=== PATIENT | female | born 1950 | race Caucasian/White ===

== ENCOUNTER 2017-03-30 06:02 | Outpatient (CLI) | payer OTHER ==
[2017-03-30 06:15] LABS: BASOPHILS % (AUTO) 0.4 %; EOSINOPHILS # (AUTO) 0.2 10^3/uL (0.0-0.7); EOSINOPHILS % (AUTO) 2.7 %; HGB - HEMOGLOBIN 13.1 g/dL (12.0-16.0); LYMPHOCYTES # (AUTO) 1.6 10^3/uL (1.5-3.5); LYMPHOCYTES % (AUTO) 28.4 %; MEAN CORPUSCULAR HGB CONC 31.4 g/dL (32.0-36.0); MEAN CORPUSCULAR VOLUME 82.9 fL (81.0-99.0); MEAN PLATELET VOLUME 7.8 fL (7.9-10.8); MONOCYTES # (AUTO) 0.4 10^3/uL (0.0-1.0); MONOCYTES % (AUTO) 7.5 %; NEUTROPHILS # (AUTO) 3.4 10^3/uL (1.5-6.6); PLT - PLATELET COUNT 279 10^3/uL (130-450); RED BLOOD COUNT 5.04 10^6/uL (4.20-5.40); WHITE BLOOD COUNT 5.6 x10^3/uL (4.8-10.8)
[2017-03-30 06:30] LABS: ALBUMIN 4.3 g/dL (3.2-5.5); ALBUMIN/GLOBULIN RATIO 1.5 (1.0-2.2); ALKALINE PHOSPHATASE 70 IU/L (42-121); ALT ALANINE AMINOTRANSFERASE 17 IU/L (10-60); AST ASPARTATE AMINOTRANSFERASE 19 IU/L (10-42); BILIRUBIN,TOTAL 0.3 mg/dL (0.2-1.0); BUN - BLOOD UREA NITROGEN 24 mg/dL (6-20); CALCIUM 9.1 mg/dL (8.5-10.3); CARBON DIOXIDE - CO2 26 mmol/L (21-32); CHLORIDE 108 mmol/L (101-111); CHOL/HDL RATIO 4.8 (<4.4); CHOLESTEROL 209 mg/dL; CREATININE 0.7 mg/dL (0.4-1.0); GFR - MDRD 84 (>89); GLUCOSE 108 mg/dL (70-100); HDL CHOLESTEROL 44 mg/dL; LDL CHOLESTEROL,CALCULATED 144 mg/dL; LDL/HDL RATIO 3.3 (<4.4); SODIUM 139 mmol/L (135-145); TOTAL PROTEIN 7.1 g/dL (6.7-8.2); VLDL CHOLESTEROL 21 mg/dL
== END 2017-03-30 06:03 | disposition home or self-care (01) ==
LOC: LAB 06:02
PROVIDERS: ATTEND Physician Assistant Medical
DX: Z00.00 Encounter for general adult medical examination without abnormal findings (principal)
CPT/HCPCS: 36415; 80053; 80061; 84443; 85025

== ENCOUNTER 2017-04-01 10:30 | Outpatient (CLI) | payer OTHER ==
--- NOTE | 2017-04-01 17:58 | XRAY Report ---
DATE OF SERVICE: 04/01/2017 THREE VIEW LUMBAR SPINE: 04/01/2017 CLINICAL INDICATION: Degenerative disk disease. AP, lateral, coned-down views of the lumbar spine are compared to previous MRI of 02/16/2014. Moderate degenerative disk and facet disease is again seen. There is no evidence of interval fracture or subluxation. The bowel gas pattern is unremarkable. IMPRESSION: Moderate degenerative changes. No evidence of interval fracture. TD: 04/01/2017 18:56
== END 2017-04-01 10:31 | disposition home or self-care (01) ==
LOC: DI 10:30
PROVIDERS: ATTEND Physician Assistant Medical
DX: M51.36 Other intervertebral disc degeneration, lumbar region (principal); M47.896 Other spondylosis, lumbar region
CPT/HCPCS: 72100

== ENCOUNTER 2017-04-14 14:25 | Outpatient (CLI) | payer OTHER ==
--- NOTE | 2017-04-15 17:52 | MRI Report ---
EXAM: MRI LUMBAR SPINE WITHOUT CONTRAST EXAM DATE: 04/14/2017 03:23 PM. CLINICAL HISTORY: Degenerative disk disease, lumbar spine. COMPARISON: MRI of the lumbar spine 02/16/2014. TECHNIQUE: Multiplanar, multisequence T1-weighted and fluid-sensitive sequences of the lumbar spine f rom T12 to S1 without contrast. Other: None. FINDINGS: There is straightening of the normal lumbar lordosis. There are Schmorl's nodes within the endplates from T11-T12 through L5-S1. There is a 3 mm retrolisthesis of L5 on S1. There is a moderate decrease in the height of the disk at T12-L1, L1-L2, L2-L3, L3-L4, L4-L5 and L5-S 1. There are a mixture of Modic type I and type II endplate degenerative change within the T12-L1 throug h L5-S1 endplates. The conus terminates at the inferior endplate level of L1. There is no significant atrophy of the paraspinal musculature or the psoas musculature. The abdominal aorta is of normal caliber. There is a T2 hyperintense lesion which appears to extend exophytically from the right lobe of the li renee measuring 3.7 x 3.1 cm. This likely represents a simple hepatic cyst. The kidneys are without guillaume dence of hydronephrosis. T12-L1: There is a small disk osteophyte complex eccentric to the right with superimposed right parac entral extrusion of the disk. There appears to be mild flattening of the right hemicord. Recommend co rrelation for any right T12 radicular symptoms. There is no significant foraminal stenosis. The facet s are normal. There is no significant change at this level. L1-L2: There is a small disk osteophyte complex abutting the sac producing a mild central canal steno sis. The facets are normal. There is mild neural foraminal narrowing bilaterally. There is no signifi cant change at this level. L2-L3: There is a small disk osteophyte complex abutting the sac producing a mild central canal steno sis. The facets are normal. There is mild to moderate neural foraminal narrowing bilaterally. There i s no significant change at this level. L3-L4: There is a small disk osteophyte complex abutting the sac producing a mild central canal steno sis. There is minimal left and mild to moderate right facet arthropathy. There is mild to moderate le ft and right foraminal stenosis. There is no significant change at this level. L4-L5: There is a broad-based disk osteophyte complex abutting the sac producing a mild central canal stenosis. There is mild ligamentum flavum hypertrophy. There is mild left and [id number] right facet arthropathy. There is [id number] left and moderate right foraminal stenosis. There is no significant change at this level. L5-S1: There is a broad-based disk osteophyte complex abutting the sac without significant central ca nal stenosis. There is abutment of the traversing S1 nerve roots without significant displacement. Th ere is minimal bilateral facet arthropathy. There is mild to moderate neural foraminal narrowing bila terally. There is no significant change at this level. IMPRESSION: 1. There is an unchanged small disk osteophyte complex with a superimposed right paracentral extrusio n of the disk producing mild flattening of the right hemicord. Recommend correlation for any right T1 2 radicular symptoms. 2. There are unchanged mild central canal stenoses at L1-L2, L2-L3, and L3-L4 from small disk osteoph yte complexes. 3. There is an unchanged mild central canal stenosis at L4-L5 from broad-based disk osteophyte comple x. Comment: The following findings are so common in adults without low back pain that while we report th eir presence, they must be interpreted with caution and in the context of the clinical situation. (Re donaldo Roberson et al, Spine 2001) Prevalence of findings in patients without low back pain: Disk degeneration (any evidence): 92% Disk desiccation/T2 signal loss: 83% Disk height loss: 56% Disk bulge: 64% Disk protrusion: 32% Annular tear/high intensity zone: 38% [facility] Referring Provider Line: [phone] SITE ID: [id number]
== END 2017-04-14 14:26 | disposition home or self-care (01) ==
LOC: DI 14:25
PROVIDERS: ATTEND Physician Assistant Medical
DX: M51.36 Other intervertebral disc degeneration, lumbar region (principal); M51.25 Other intervertebral disc displacement, thoracolumbar region; M43.17 Spondylolisthesis, lumbosacral region; M47.896 Other spondylosis, lumbar region; M47.897 Other spondylosis, lumbosacral region
CPT/HCPCS: 72148

== ENCOUNTER 2017-05-11 19:52 | Emergency (ER) | payer OTHER ==
[2017-05-11 19:57] VITALS: BP 139/64
[2017-05-11] MEDS ORDERED: BENZONATATE 100 MG CAPSULE PO STA (20:27)
[2017-05-11] MEDS ORDERED: DEXAMETHASONE 10 MG/ML VIAL PO STA (20:27)
--- NOTE | 2017-05-11 20:55 | ED Physician Documentation ---
PD HPI URI - Stated complaint Stated Complaint: SORE THROAT - Chief complaint Chief Complaint: Resp - History obtained from History obtained from: Patient - History of Present Illness Timing - onset: How many days ago (10) Timing details: Gradual onset, Still present Associated symptoms: Fever, Chills, Nasal congestion, Rhinorrhea, Sore throat, Dry cough Contributing factors: Sick contact Similar symptoms before: No diagnosis Recently seen: Not recently seen - Additional information Additional information: Patient is a 66 year old female with no significant past medical history who is presenting to the emergency department for fevers, sore throat, cough and sinus pressure. patient states that for the last 10 days she has had uri symptoms and her family members had similar symptoms. patient states that the other family members got better but her symptoms persisted. Review of Systems Constitutional: reports: Fever, Chills Eyes: reports: Reviewed and negative Ears: denies: Ear pain, Drainage/discharge Nose: reports: Rhinorrhea / runny nose, Congestion, Sinus pressure / pain Throat: reports: Sore throat Cardiac: denies: Chest pain / pressure Respiratory: reports: Cough. denies: Wheezing GI: denies: Nausea, Vomiting : reports: Reviewed and negative Skin: reports: Reviewed and negative Musculoskeletal: denies: Neck pain, Back pain Neurologic: denies: Generalized weakness, Focal weakness, Headache Psychiatric: denies: Depressed Immunocompromised: denies: Immunocompromised PD PAST MEDICAL HISTORY - Past Medical History Past Medical History: Yes Endocrine/Autoimmune: HyPOthyroidism Musculoskeletal: Osteoarthritis - Past Surgical History Past Surgical History: Yes - Present Medications Home Medications: Ambulatory Orders Medication Instructions Recorded Confirmed Amox/Clav 875/125 [Augmentin] 1 each PO Q12H #14 tablet 05/11/17 Benzonatate [Tessalon Perle] 100 mg PO TID #14 capsule 05/11/17 Codeine Phosphate/Guaifenesin 5 ml PO DAILY #100 ml 05/11/17 [Guaifen-Codeine 100-10 mg/5 ml] Levothyroxine Sodium [Synthroid] 112 mcg PO DAILY 05/11/17 05/11/17 - Allergies Allergies/Adverse Reactions: Allergies Allergy/AdvReac Type Severity Reaction Status Date / Time No Known Drug Allergies Allergy Verified 05/11/17 19:57 - Social History Does the pt smoke?: No Smoking Status: Never smoker Does the pt drink ETOH?: No Does the pt have substance abuse?: No - Immunizations Immunizations are current?: Yes - POLST Patient has POLST: No PD ED PE NORMAL - Vitals Vital signs reviewed: Yes - General General: Alert and oriented X 3, No acute distress, Well developed/nourished - HEENT HEENT: Atraumatic, PERRL, Moist mucous membranes - Cardiac Cardiac: RRR, No murmur - Respiratory Respiratory: No respiratory distress - Abdomen Abdomen: Soft, Non tender, Non distended - Derm Derm: Normal color, Warm and dry, No rash - Extremities Extremities: No deformity, No edema - Neuro Neuro: Alert and oriented X 3, No motor deficit, Normal speech - Psych Psych: Normal mood PD ED PE EXPANDED - HEENT HEENT: Right frontal sinus TTP, Left frontal sinus TTP, Nasal congestion, Pharyngeal erythema. No: Tonsillar exudate, Soft palate petecchiae Results - Vitals Vitals: Vital Signs - 24 hr 05/11/17 19:54 Temperature 36.4 C L Heart Rate 75 Respiratory 18 Rate Blood Pressure 139/64 H O2 Saturation 98 Oxygen O2 Source Room air - Labs Labs: Laboratory Tests 05/11/17 20:08 Group A Strep Rapid Negative - Rads (name of study) chest x-ray Radiology: Final report received (hiatal hernia, no pulmonary abnormality) PD MEDICAL DECISION MAKING - ED course Complexity details: reviewed old records, reviewed results, re-evaluated patient , considered differential, d/w patient, d/w family ED course: Patient was seen and examined at bedside. Patient was treated with decadron, tessalon and sent for imaging. When patient returned from imaging and results were reviewed. Patient had no sign of pneumonia. Patient was treated with augmentin and was stable for discharge with outpatient follow up. Departure - Departure Disposition: 01 Home, Self Care Clinical Impression: Sinusitis Condition: Good Instructions: ED Sinusitis Abx Tx Follow-Up: Judith Maldonado PA-C [Primary Care Provider] - Within 3 Days Prescriptions: Amox/Clav 875/125 [Augmentin] 1 each PO Q12H #14 tablet Benzonatate [Tessalon Perle] 100 mg PO TID #14 capsule Codeine Phosphate/Guaifenesin [Guaifen-Codeine 100-10 mg/5 ml] 5 ml PO DAILY # 100 ml Comments: Your chest x-ray today showed no pneumonia, only your hiatal hernia. You are being started on an antibiotics for sinusitis. You will be on the antibiotics for the next week. You should follow up with your doctor if your symptoms don' t improve. You may return to the emergency department at any time for new, worsening or uncontrollable symptoms.
--- NOTE | 2017-05-11 21:10 | XRAY Preliminary Report ---
Exam: XR CHEST 2 VIEW X-RAY IMPRESSION: Moderate hiatal hernia, mildly increased. No acute pulmonary findings seen. [facility] SITE ID: [id number]
--- NOTE | 2017-05-11 21:11 | XRAY Report ---
EXAM: CHEST RADIOGRAPHY EXAM DATE: 05/11/2017 08:52 PM. CLINICAL HISTORY: Fever, cough. COMPARISON: Chest 03/18/2016. TECHNIQUE: 2 views. FINDINGS: Lungs/Pleura: No focal opacities evident. No pleural effusion. No pneumothorax. Normal volumes. Mediastinum: Normal heart size. Moderate hiatal hernia, mildly increased. IMPRESSION: Moderate hiatal hernia, mildly increased. No acute pulmonary findings seen. [facility] Referring Provider Line: [phone] SITE ID: [id number]
[2017-05-11] MEDS ORDERED: IBUPROFEN 600 MG TABLET PO STA (21:13)
[2017-05-11] MEDS ORDERED: AMOX/CLAV 875 MG/125 MG TABLET PO STA (21:13)
== END 2017-05-11 21:18 | disposition home or self-care (01) ==
LOC: ED 19:52
DX: J32.9 Chronic sinusitis, unspecified (principal); E03.9 Hypothyroidism, unspecified
CPT/HCPCS: 71046; 87070; 87430; 99283; A9270

== ENCOUNTER 2017-05-26 09:10 | Emergency (ER) | payer OTHER ==
[2017-05-26 10:33] VITALS: BP 138/67
--- NOTE | 2017-05-26 10:33 | ED Physician Documentation ---
PD HPI DYSPNEA - Stated complaint Stated Complaint: SOA - Chief complaint Chief Complaint: Resp - History obtained from History obtained from: Patient, Family - History of Present Illness Timing - onset: Today Timing - onset during: Rest Timing - duration: Minutes Timing - details: Abrupt onset, Now resolved Inciting event(s): Allergic rxn/anaphylaxis, Exposure (ie smoke) Improved by: Inhaler/neb Worsened by: Coughing, Allergens Associated symptoms: Wheezing. No: Fever, Cough, Hemoptysis, Chest pain / discomfort, Palpitations, Diaphoresis, Bilateral edema, Unilateral edema Similar symptoms before: Diagnosis (bronchospasm related to irritant inahalents) Recently seen: Clinic - Additional information Additional information: 66-year-old female with a history of inhalant irritant bronchospasm has developed a episode of acute bronco-spasm related to smoke and perfume on a coworker. The patient developed acute shortness of breath and coughed hard enough that she became dyspneic and was brought to the emergency department for evaluation. She has since had resolution of her symptoms and states that these are typical for her for exposure to irritants that she is sensitive to and she would normally just take some Benadryl and symptoms would resolve. She is taking the Benadryl symptoms are better and she would prefer to go home. She has recently been treated for a sinus infection and believes those symptoms are completely resolved she finished taking her antibiotic about a week ago. She has not been using her inhaler recently but does use her inhaler occasionally when she develops bronchospasm related to irritants. Review of Systems Constitutional: denies: Fever Eyes: denies: Decreased vision Ears: denies: Ear pain Nose: denies: Rhinorrhea / runny nose, Congestion Throat: denies: Sore throat Cardiac: denies: Chest pain / pressure, Palpitations Respiratory: reports: Dyspnea, Cough, Wheezing GI: denies: Abdominal Pain, Nausea, Vomiting : denies: Dysuria, Frequency PD PAST MEDICAL HISTORY - Past Medical History Past Medical History: Yes Endocrine/Autoimmune: HyPOthyroidism Musculoskeletal: Osteoarthritis - Past Surgical History Past Surgical History: Yes - Present Medications Home Medications: Ambulatory Orders Medication Instructions Recorded Confirmed Amox/Clav 875/125 [Augmentin] 1 each PO Q12H #14 tablet 05/11/17 Benzonatate [Tessalon Perle] 100 mg PO TID #14 capsule 05/11/17 Codeine Phosphate/Guaifenesin 5 ml PO DAILY #100 ml 05/11/17 [Guaifen-Codeine 100-10 mg/5 ml] Levothyroxine Sodium [Synthroid] 112 mcg PO DAILY 05/11/17 05/11/17 - Allergies Allergies/Adverse Reactions: Allergies Allergy/AdvReac Type Severity Reaction Status Date / Time No Known Drug Allergies Allergy Verified 05/11/17 19:57 - Social History Does the pt smoke?: No Smoking Status: Never smoker Does the pt drink ETOH?: No Does the pt have substance abuse?: No - Immunizations Immunizations are current?: Yes - POLST Patient has POLST: No PD ED PE NORMAL - Vitals Vital signs reviewed: Yes (hypertensive) - General General: Alert and oriented X 3, No acute distress, Well developed/nourished - HEENT HEENT: Atraumatic, PERRL, EOMI, Ears normal, Moist mucous membranes, Pharynx benign, Dentition benign - Neck Neck: Supple, no meningeal sign, No bony TTP - Cardiac Cardiac: RRR, No murmur - Respiratory Respiratory: No respiratory distress, Clear bilaterally - Abdomen Abdomen: Soft, Non tender - Back Back: No CVA TTP, No spinal TTP - Derm Derm: Normal color, Warm and dry, No rash - Extremities Extremities: No deformity, No edema - Neuro Neuro: Alert and oriented X 3, No motor deficit, No sensory deficit, Normal speech Eye Opening: Spontaneous Motor: Obeys Commands Verbal: Oriented GCS Score: 15 - Psych Psych: Normal mood, Normal affect Results - Vitals Vitals: Vital Signs - 24 hr 05/26/17 05/26/17 09:20 10:18 Heart Rate 81 64 Respiratory 20 23 Rate Blood Pressure 162/87 H 138/67 H O2 Saturation 99 100 Oxygen O2 Source Room air - EKG (time done) 0953 Rate: Rate (enter#) (68) Other comments: Other comments (early transition) Computer interpretation: Agree with computer PD MEDICAL DECISION MAKING - ED course Complexity details: reviewed results, re-evaluated patient, considered differential, d/w patient, d/w family ED course: 66-year-old female with an acute irritant bronchospastic episode has resolution in her symptoms. No further treatment is indicated in the emergency department no further workup is indicated the patient would like to go home. Departure - Departure Disposition: Home, Self Care Clinical Impression: Bronchospastic airway disease Condition: Stable Instructions: Asthma Control Triggers Irritants Follow-Up: Judith Maldonado PA-C [Primary Care Provider] - Forms: Activity restrictions Discharge Date/Time: 05/26/17 10:44
== END 2017-05-26 10:44 | disposition home or self-care (01) ==
LOC: ED 09:10
DX: T65.891A Toxic effect of other specified substances, accidental (unintentional), initial encounter (principal); J68.0 Bronchitis and pneumonitis due to chemicals, gases, fumes and vapors; E03.9 Hypothyroidism, unspecified
CPT/HCPCS: 93005; 99283

== ENCOUNTER 2017-09-07 12:29 | Outpatient (CLI) | END 2017-09-07 12:30 | disposition home or self-care (01) ==

== ENCOUNTER 2017-09-29 14:27 | Outpatient (CLI) | payer OTHER ==
[2017-09-29 15:35] LABS: CALCIUM 9.3 mg/dL (8.5-10.3); CREATININE 0.7 mg/dL (0.4-1.0)
== END 2017-09-29 14:28 | disposition home or self-care (01) ==
LOC: LAB 14:27
PROVIDERS: ATTEND Physician Assistant Medical
DX: R25.2 Cramp and spasm (principal)
CPT/HCPCS: 36415; 80048

== ENCOUNTER 2017-12-09 13:04 | Outpatient (CLI) | payer OTHER ==
--- NOTE | 2017-12-09 14:22 | Ultrasound Report ---
Reason: HISTORY OF DEEP VENOUS THROMBOSIS Procedure Date: 12/09/2017 Accession Number: [id number] / [id number] Procedure: US - Duplex Ext Veins Right CPT Code: FULL RESULT: EXAM: RIGHT LOWER EXTREMITY VENOUS ULTRASOUND EXAM DATE: 12/09/2017 01:18 PM. CLINICAL HISTORY: History of deep venous thrombosis. COMPARISON: DUPLEX EXT VEINS RIGHT 11/13/2015 3:03 PM. TECHNIQUE: Real-time sonographic vascular imaging was performed by the installation supervisor through the lower extremity utilizing both color-flow and Doppler spectral analysis. Multiple contact representative static images were saved for review. FINDINGS: Common Femoral Vein (CFV): Normal. CFV-GSV Junction: Normal. Profunda Femoral Vein (PFV): Normal. Femoral Vein (FV) Prox: Normal. Femoral Vein (FV) Mid: Normal. Femoral Vein (FV) Dist: Normal. Popliteal Vein: Normal. Posterior Tibial Veins: Normal. Peroneal Veins: Normal. Contralateral Side CFV: Normal. Other: None. IMPRESSION: No evidence for deep venous thrombosis. [facility]
== END 2017-12-09 13:05 | disposition home or self-care (01) ==
LOC: DI 13:04
PROVIDERS: ATTEND Family Medicine
DX: M79.661 Pain in right lower leg (principal); Z86.718 Personal history of other venous thrombosis and embolism

== ENCOUNTER 2018-01-19 15:06 | Outpatient (CLI) | payer OTHER ==
--- NOTE | 2018-01-20 10:50 | MRI Report ---
Reason: OSTEOARTHRITIS,KNEE RIGHT Procedure Date: 01/19/2018 Accession Number: [id number] / [id number] Procedure: MRI - Knee RT W/O CPT Code: FULL RESULT: EXAM: RIGHT KNEE MRI WITHOUT CONTRAST EXAM DATE: 01/19/2018 04:48 PM. CLINICAL HISTORY: Right knee pain since 2009. History of meniscus repair. COMPARISON: KNEE RIGHT W/O 04/15/2015 3:18 PM. TECHNIQUE: Multiplanar, multisequence T1-weighted and fluid-sensitive sequences of the knee without contrast. Other: None. FINDINGS: Bones: There is subcortical fluid in the intercondylar region of the tibia. There is tricompartmental osteophyte formation. Articular Cartilage: There is mild thinning of the patellofemoral cartilage, and moderate lateral compartment cartilage erosion. There is mild medial compartment cartilage erosion. Medial Meniscus: The medial meniscus is intact. Lateral Meniscus: There is degenerative change of the anterior horn. There is a horizontal tear of the posterior horn. The body is extruded. There is fraying of the free margin. Cruciate Ligaments: The anterior and posterior cruciate ligaments are intact. Collateral Ligaments: The medial collateral and lateral collateral ligamentous structures are intact. Tendons: The patella and quadriceps tendons appear slightly thickened, raising the possibility of prior tendinosis or low-grade tears. Musculature: No edema or fatty atrophy. Other: There is a small joint effusion. No popliteal cyst. No loose bodies. The medial and lateral retinacula are intact. The subcutaneous tissues and fat pads are unremarkable. IMPRESSION: 1. Moderate to severe lateral compartment osteoarthritis. Mild medial and patellofemoral compartment osteoarthritis. 2. Degenerative tearing and extrusion of the lateral meniscus. Degenerative tearing of the lateral meniscus and hyaline cartilage erosion in the lateral compartment appear to have worsened since the prior MRI in 2015. 3. Small joint effusion. 4. Possible prior tendinosis or low-grade partial thickness tear of the patella and quadriceps tendons. 5. No significant change in the medial and patellofemoral compartments compared with the prior study from 2016. [facility] MUSCULOSKELETAL RADIOLOGY SECTION
== END 2018-01-19 15:07 | disposition home or self-care (01) ==
LOC: DI 15:06
PROVIDERS: ATTEND Physician Assistant Medical
DX: M17.11 Unilateral primary osteoarthritis, right knee (principal); S83.281A Other tear of lateral meniscus, current injury, right knee, initial encounter; M25.461 Effusion, right knee

== ENCOUNTER 2018-01-31 08:48 | Outpatient (CLI) | payer OTHER ==
--- NOTE | 2018-02-04 08:27 | Nuclear Medicine Report ---
Reason: CHEST PAIN Procedure Date: 01/31/2018 Accession Number: [id number] / [id number] Procedure: NM - Myocardial Perfusion STR/RST CPT Code: FULL RESULT: EXAM: Myocardial Perfusion STR/RST DATE: 01/31/2018 9:30 AM CLINICAL HISTORY: CHEST PAIN COMPARISON: None. TECHNIQUE: The patient was injected intravenously with a dose of 10.6 mCi technetium 99 based radiotracer in anticipation of a nuclear medicine myocardial stress perfusion study. The stress portion and imaging portion of the examination were then subsequently not completed due to unanticipated absence of the physician directing the stress laboratory. FINDINGS: None. IMPRESSION: Study not performed. [facility]
== END 2018-01-31 08:49 | disposition home or self-care (01) ==
LOC: DI 08:48
PROVIDERS: ATTEND Physician Assistant Medical
DX: Z53.8 Procedure and treatment not carried out for other reasons (principal)
CPT/HCPCS: 78452; 93017; A9500

== ENCOUNTER 2018-02-25 08:55 | Outpatient (CLI) | payer OTHER ==
[2018-02-25] MEDS ORDERED: AMINOPHYLLINE 250 MG/10 ML VIAL IV ONE (08:56)
[2018-02-25] MEDS ORDERED: REGADENOSON 0.4 MG/5 ML SYRINGE IVP ONE ×2 (10:46→15:47)
--- NOTE | 2018-02-25 12:14 | CARDIAC PROCEDURE NOTE ---
DATE OF SERVICE: 02/25/2018 Physician: Lashonda Cobb MD, [facility] INDICATION: Chest pain with exertion. CARDIAC RISK FACTORS 1. Hyperlipidemia. 2. Family history of heart disease. 3. Postmenopausal status. 4. Frequent Diclofenac use. SUMMARY: After signing informed consent, the patient underwent a Lexiscan stress test with nuclear myocardial perfusion imaging using Sestamibi. Resting heart rate: 59. Peak heart rate: 105. Resting blood pressure: 168/80. Peak blood pressure: 162/82. Lexiscan was infused per protocol. The patient developed flushing, shortness of breath, a dry cough, nausea, and her typical chest pain which was rated a 2/10. Aminophylline 50 mg IV was given for reversal and her symptoms resolved within 4 minutes. At the end of recovery, when assuming an upright sitting position, the patient again developed her shortness of breath, dry cough, and chest pain now rated a 4/10. There was no wheezing on exam, and oxygen saturation was 99% on room air at this point. Aminophylline 50 mg IV was again administered and she had resolution of symptoms in 2 minutes. She exited the stress lab with no symptoms, heart rate 71, blood pressure 150/83. RESTING EKG: Normal sinus rhythm, first-degree AV block, left atrial enlargement, early R/S transition. EKG AT [facility]: New T-wave inversion in lead III and rare PVCs. EKG with the second episode of chest pain: Continued T-wave inversion in lead III. This resolved after the second dose of Aminophylline was administered (she required a total dose of 100 mg of Aminophylline). IMPRESSION: 1. Borderline significant ischemic changes by EKG criteria on this pharmaceutical stress test. 2. Shortness of breath and a dry cough developed after both exposures to Sestamibi IV dosing. 3. Nuclear images reported separately. cc: Judith Maldonado PA-C TD: 02/25/2018 11:56 MTDD
--- NOTE | 2018-02-25 16:30 | Nuclear Medicine Report ---
Reason: CHEST PAIN Procedure Date: 02/25/2018 Accession Number: [id number] / [id number] Procedure: NM - Myocardial Perfusion STR/RST CPT Code: FULL RESULT: EXAM: SINGLE-ISOTOPE PHARMACOLOGICAL STRESS TEST WITH REGADENOSON. SINGLE-ISOTOPE AND ONE-DAY REST/STRESS MYOCARDIAL PERFUSION SCANS WITH TOMOGRAPHIC IMAGING, QUANTITATIVE ANALYSIS, WALL MOTION ANALYSIS AND CALCULATION OF EJECTION FRACTION. EXAM DATE: 02/25/2018 03:50 PM. CLINICAL HISTORY: CHEST PAIN. COMPARISON: None available. TECHNIQUE: After the intravenous administration of 9.9 mCi of Tc-99m sestamibi, a rest myocardial perfusion scan was done with tomography. Motion correction was applied when appropriate. After an appropriate delay, pharmacological stress was performed with the infusion of 0.4 mg regadenoson per protocol. According to protocol, 41.7 mCi of Tc-99m sestamibi was injected for stress myocardial perfusion scan. Motion correction was applied when appropriate. Gated tomographic images were obtained for wall motion analysis and computation of left ventricular ejection fraction. FINDINGS: There is a small, mild defect involving the anterior apex and distal anteroseptal wall, slightly greater involvement of the distal anterior wall on the stress images compared to the rest images. Computer analysis: Summed stress score 3 Summed rest score 2 Summed difference score 1 Wall motion analysis demonstrates no focal wall motion abnormality. The left ventricular end-diastolic volume is 50 cc. The left ventricular end-systolic volume is 14 cc. The left ventricular ejection fraction is calculated to be 72%. IMPRESSION: 1. Small, mild defect in the anterior apex and distal anteroseptal wall, with minimal reversibility in the distal anterior wall. 2. Left ventricular ejection fraction of 72%. 3. Normal segmental and global wall motion. 4. Normal left ventricular cavity size, no change with stress. 5. Based on computer analysis, normal study with no ischemia. [facility]
== END 2018-02-25 08:56 | disposition home or self-care (01) ==
LOC: DI 08:55
PROVIDERS: ATTEND Physician Assistant Medical
DX: R07.9 Chest pain, unspecified (principal); E78.5 Hyperlipidemia, unspecified; Z82.49 Family history of ischemic heart disease and other diseases of the circulatory system; Z79.1 Long term (current) use of non-steroidal anti-inflammatories (NSAID)
CPT/HCPCS: 78452; 93017; A9500; J2785

== ENCOUNTER 2018-04-13 10:50 | Outpatient (CLI) | payer BC ==
--- NOTE | 2018-04-13 14:38 | XRAY Report ---
Reason: PAIN IN UNSPECIFIED JOINT,LOW BACK PAIN Procedure Date: 04/13/2018 Accession Number: [id number] / [id number] Procedure: XR - Hand 3 View BILAT CPT Code: FULL RESULT: EXAMS: 1. RIGHT HAND RADIOGRAPHY 2. LEFT HAND RADIOGRAPHY EXAM DATE: 04/13/2018 11:06 AM. CLINICAL HISTORY: Pain in unspecified joint, low back pain. COMPARISON: None. TECHNIQUE: 2 views each hand. FINDINGS: Right: Bones: Normal. No fractures or bone lesions. Joints: Mild joint space narrowing of the distal interphalangeal joints, most pronounced in the second ray. No subluxations. Soft Tissues: Normal. No soft tissue swelling. Left: Bones: Normal. No fractures or bone lesions. Joints: Mild degenerative changes of the first carpometacarpal joint and mild joint space narrowing of the distal interphalangeal joints. No subluxations. Soft Tissues: Normal. No soft tissue swelling. IMPRESSION: Mild degenerative changes, osteoarthrosis pattern. [facility]
--- NOTE | 2018-04-13 14:45 | XRAY Report ---
Reason: PAIN IN UNSPECIFIED JOINT,LOW BACK PAIN Procedure Date: 04/13/2018 Accession Number: [id number] / [id number] Procedure: XR - Pelvis 1 View CPT Code: FULL RESULT: EXAM: PELVIS RADIOGRAPHY EXAM DATE: 04/13/2018 11:41 AM. CLINICAL HISTORY: Pain in unspecified joint, low back pain. COMPARISON: None. TECHNIQUE: 1 view. FINDINGS: Bones: Normal. No fracture or bone lesion. Joints: The visualized hip, pubis symphysis, and sacroiliac joints are preserved. No subluxation. Soft Tissues: Normal. No soft tissue swelling. IMPRESSION: Normal pelvis radiography. RADIA
--- NOTE | 2018-04-13 14:45 | XRAY Report ---
Reason: PAIN IN UNSPECIFIED JOINT,LOW BACK PAIN Procedure Date: 04/13/2018 Accession Number: [id number] / [id number] Procedure: XR - Lumbar Spine 2 View CPT Code: FULL RESULT: EXAM: LUMBOSACRAL SPINE RADIOGRAPHY EXAM DATE: 04/13/2018 11:06 AM. CLINICAL HISTORY: Pain in unspecified joint, low back pain. COMPARISONS: Lumbar spine 2 view 04/01/2017 10:32 AM. TECHNIQUE: 3 views. FINDINGS: Alignment: Mild dextroconvex degenerative lumbar scoliosis centered about L2-L3. No significant listhesis. Bones: Five [id number] lumbar vertebral bodies are present. No fractures or bone lesions. Disks: Mild multilevel degenerative disk disease with disk osteophyte complex formation mostly at L2-L3 and L1-L2. Facets: Multilevel facet arthropathy, mild throughout most of the lumbar spine and moderate at L5. Sacroiliac Joints: Unremarkable. Soft Tissues: Normal. The visualized bowel gas pattern is normal. IMPRESSION: Degenerative changes as described. RADIA
== END 2018-04-13 10:51 | disposition home or self-care (01) ==
LOC: DI 10:50
PROVIDERS: ATTEND Internal Medicine Rheumatology
DX: M18.0 Bilateral primary osteoarthritis of first carpometacarpal joints (principal); M19.042 Primary osteoarthritis, left hand; M19.041 Primary osteoarthritis, right hand; M51.36 Other intervertebral disc degeneration, lumbar region; M47.9 Spondylosis, unspecified
CPT/HCPCS: 72100; 72170

== ENCOUNTER 2018-04-14 06:23 | Outpatient (CLI) | payer BC ==
[2018-04-14 09:15] LABS: RHEUMATOID FACTOR NEGATIVE (Negative)
== END 2018-04-14 06:24 | disposition home or self-care (01) ==
LOC: LAB 06:23
PROVIDERS: ATTEND Internal Medicine Rheumatology
DX: M25.50 Pain in unspecified joint (principal)
CPT/HCPCS: 36415; 85651; 86038; 86140; 86200; 86430

== ENCOUNTER 2018-05-25 06:30 | Outpatient (CLI) | payer BC, MEDICARE ==
[2018-05-25 07:08] LABS: CALCIUM 9.1 mg/dL (8.5-10.3); CREATININE 0.7 mg/dL (0.4-1.0)
== END 2018-05-25 06:31 | disposition home or self-care (01) ==
LOC: LAB 06:30
PROVIDERS: ATTEND Internal Medicine Cardiovascular Disease
DX: I10 Essential (primary) hypertension (principal)
CPT/HCPCS: 36415; 80048

== ENCOUNTER 2018-06-07 08:24 | Outpatient (CLI) | payer BC ==
[2018-06-07 09:01] LABS: CHOL/HDL RATIO 3.8 (<4.4); CHOLESTEROL 156 mg/dL; HDL CHOLESTEROL 41 mg/dL; LDL CHOLESTEROL,CALCULATED 87 mg/dL; LDL/HDL RATIO 2.1 (<4.4); VLDL CHOLESTEROL 28 mg/dL
== END 2018-06-07 08:25 | disposition home or self-care (01) ==
LOC: LAB 08:24
PROVIDERS: ATTEND Internal Medicine Cardiovascular Disease
DX: E78.5 Hyperlipidemia, unspecified (principal)
CPT/HCPCS: 36415; 80061; 83721

== ENCOUNTER 2018-07-06 08:00 | Outpatient (CLI) | payer BC | END 2018-07-06 23:59 | disposition home or self-care (01) | LOC: LAB.R 08:00 | PROVIDERS: ATTEND Orthopaedic Surgery Sports Medicine | DX: Z01.812 Encounter for preprocedural laboratory examination (principal); M25.561 Pain in right knee; M17.11 Unilateral primary osteoarthritis, right knee | CPT/HCPCS: 87640 ==

== ENCOUNTER 2018-07-07 06:57 | Outpatient (CLI) | payer BC ==
[2018-07-07 07:37] LABS: ALBUMIN/GLOBULIN RATIO 1.3 (1.0-2.2); BILIRUBIN,TOTAL 0.6 mg/dL (0.2-1.0); CALCIUM 8.8 mg/dL (8.5-10.3); CREATININE 0.7 mg/dL (0.4-1.0)
[2018-07-07 07:43] LABS: BASOPHILS % (AUTO) 0.7 %; EOSINOPHILS # (AUTO) 0.1 10^3/uL (0.0-0.7); EOSINOPHILS % (AUTO) 1.9 %; LYMPHOCYTES # (AUTO) 1.6 10^3/uL (1.5-3.5); LYMPHOCYTES % (AUTO) 25.8 %; MEAN CORPUSCULAR HEMOGLOBIN 23.9 pg (27.0-31.0); MEAN CORPUSCULAR VOLUME 77.2 fL (81.0-99.0); MONOCYTES # (AUTO) 0.5 10^3/uL (0.0-1.0); MONOCYTES % (AUTO) 7.2 %; NEUTROPHILS % (AUTO) 64.4 %; PLT - PLATELET COUNT 326 10^3/uL (130-450); RED BLOOD COUNT 4.59 10^6/uL (4.20-5.40); WHITE BLOOD COUNT 6.3 x10^3/uL (4.8-10.8)
== END 2018-07-07 06:58 | disposition home or self-care (01) ==
LOC: LAB 06:57
PROVIDERS: ATTEND Orthopaedic Surgery Sports Medicine
DX: M17.11 Unilateral primary osteoarthritis, right knee (principal); M25.561 Pain in right knee; I44.0 Atrioventricular block, first degree
CPT/HCPCS: 36415; 80053; 85025; 93005

== ENCOUNTER 2018-07-13 06:04 | Inpatient (IN) | payer BC ==
[2018-07-13] MEDS ORDERED: ceFAZolin 2 GM/50 ML 2 GM/50 ML BAG IV ONE (06:25)
[2018-07-13] MEDS ORDERED: LACTATED RINGERS 1,000 ML IV ONE ×2 (06:38→08:45)
[2018-07-13] MEDS ORDERED: BUPIVACAINE 0.5% PF 30 ML VIAL ONE (07:00)
--- NOTE | 2018-07-13 07:10 | ANESTHESIA ---
Pre-Anesthesia VS, & Labs - Diagnosis right knee degenerative joint disease - Procedure right knee total arthroplasty Height 5 ft 6 in Weight (kg) 82 kg Body Mass Index 27.6 - NPO >8 hours - Is Patient ?: No Home Medications and Allergies Home Medications: Ambulatory Orders Acetaminophen [Tylenol] 650 mg PO Q6H PRN 07/06/18 Aspirin [Aspirin EC] 81 mg PO DAILY 07/06/18 Ibuprofen [Motrin] 600 mg PO Q6H PRN 07/06/18 Losartan Potassium [Cozaar] 100 mg PO DAILY 07/06/18 Nitroglycerin [Nitrostat] 0.4 mg SL Q5MIN PRN 07/06/18 Rosuvastatin Calcium [Crestor] 5 mg PO QPM 07/06/18 Levothyroxine Sodium [Synthroid] 112 mcg PO DAILY 05/11/17 Acetaminophen [Tylenol] 650 mg PO Q6H PRN 07/06/18 Aspirin [Aspirin EC] 81 mg PO DAILY 07/06/18 Ibuprofen [Motrin] 600 mg PO Q6H PRN 07/06/18 Losartan Potassium [Cozaar] 100 mg PO DAILY 07/06/18 Nitroglycerin [Nitrostat] 0.4 mg SL Q5MIN PRN 07/06/18 Rosuvastatin Calcium [Crestor] 5 mg PO QPM 07/06/18 Allergies/Adverse Reactions: Allergies Allergy/AdvReac Type Severity Reaction Status Date / Time cigarette smoke Allergy Respiratory Verified 07/06/18 10:29 Anes History & Medical History - Anesthetic History Anesthesia Complications: reports: Post-Operative Nausea/Vomiting - Medical History Cardiovascular: reports: Hypertension, High cholesterol, Deep vein thrombosis, Angina, Other (Negative heart cath in 2018) Pulmonary: reports: None Gastrointestinal: reports: None Urinary: reports: None Neuro: reports: None Musculoskeletal: reports: Osteoarthritis, Chronic back pain Endocrine/Autoimmune: reports: HyPOthyroidism Blood Disorders: reports: None Skin: reports: Eczema Smoking Status: Never smoker Psychosocial: reports: No issues indicated - Surgical History Eyes Ears Nose Throat (EENT): Other (thyroidectomy) Gynecologic: Other (breast biopsy) Orthopedic: Arthroscopic surgery (right knee x2) Results - EKG Results EKG Comparison: Reviewed EKG Exam General: Alert, Oriented x3, Cooperative, No acute distress Dental: WNL Mouth Openin Fingerbreadth Neck Mobility: Normal Mallampati classification: II Thyromental Distance: 4-6 cm Respiratory: Lungs clear, Normal breath sounds, No respiratory distress, No accessory muscle use Cardiovascular: Regular rate, Normal S1, Normal S2, No murmurs Mental/Cognitive Status: Alert/Oriented X3, Normal for patient Plan Anesthesia Type: Spinal Consent for Procedure(s) Verified and Reviewed: Yes Code Status: Attempt Resuscitation ASA classification: 2-Mild systemic disease Is this case an emergency?: No
[2018-07-13] MEDS ORDERED: MIDAZOLAM 2 MG/2 ML VIAL IVP ONE (08:10)
[2018-07-13] MEDS ORDERED: DEXAMETHASONE 4 MG/ML VIAL IVP ONE (08:10)
[2018-07-13] MEDS ORDERED: TRANEXAMIC ACID 1,000 MG/10 ML VIAL IV ONE (08:10)
[2018-07-13] MEDS ORDERED: ACETAMINOPHEN 1,000 MG/100 ML 100 ML IV ONE (08:10)
[2018-07-13] MEDS ORDERED: LIDOCAINE-MPF 1% 5 ML VIAL SUBQ ONE (08:10)
[2018-07-13] MEDS ORDERED: ONDANSETRON 4 MG/2 ML VIAL IVP ONE (08:10)
[2018-07-13] MEDS ORDERED: MORPHINE PF 10 MG/10 ML AMP EPI ONE (08:10)
[2018-07-13] MEDS ORDERED: PROPOFOL 200 MG/20 ML VIAL IVP ONE (08:10)
[2018-07-13] MEDS ORDERED: BUPIVACAINE 0.5% PF 30 ML VIAL INFIL ONE (08:21)
[2018-07-13] MEDS ORDERED: HYDROmorphone 1 MG/ML CARPUJECT IVP PRN (11:25)
[2018-07-13] MEDS ORDERED: ONDANSETRON 4 MG/2 ML VIAL IVP PRN ×2 (11:25→11:32)
[2018-07-13] MEDS ORDERED: ACETAMINOPHEN 325 MG TABLET PO PRN (11:25)
[2018-07-13] MEDS ORDERED: NALBUPHINE 10 MG/ML AMP IVP PRN (11:32)
[2018-07-13] MEDS: SODIUM CHLORIDE FLUSH 0.9% 10 ML SYRINGE IVP PRN ×3 (12:20→23:36)
[2018-07-13 12:47] LABS: CALCIUM 8.8 mg/dL (8.5-10.3); CREATININE 0.6 mg/dL (0.4-1.0)
[2018-07-13 12:54] LABS: BASOPHILS # (AUTO) 0.1 10^3/uL (0.0-0.1); BASOPHILS % (AUTO) 0.6 %; EOSINOPHILS % (AUTO) 0.2 %; HGB - HEMOGLOBIN 10.1 g/dL (12.0-16.0); LYMPHOCYTES # (AUTO) 0.8 10^3/uL (1.5-3.5); LYMPHOCYTES % (AUTO) 9.2 %; MEAN CORPUSCULAR HGB CONC 31.9 g/dL (32.0-36.0); MEAN CORPUSCULAR VOLUME 75.3 fL (81.0-99.0); MEAN PLATELET VOLUME 7.8 fL (7.9-10.8); MONOCYTES # (AUTO) 0.1 10^3/uL (0.0-1.0); MONOCYTES % (AUTO) 1.5 %; NEUTROPHILS # (AUTO) 8.1 10^3/uL (1.5-6.6); NEUTROPHILS % (AUTO) 88.5 %; PLT - PLATELET COUNT 275 10^3/uL (130-450); RED CELL DISTRIBUTION WIDTH 15.9 % (12.0-15.0); WHITE BLOOD COUNT 9.2 x10^3/uL (4.8-10.8)
[2018-07-13 13:16] LABS: INR 1.1 (0.8-1.2); PT - PROTHROMBIN TIME 12.1 secs (9.9-12.6)
[2018-07-13] MEDS ORDERED: ceFAZolin 2 GM in SODIUM CHLORIDE 0.9% MINIBAG 100 ML IV SCH (15:30)
[2018-07-13] MEDS: ceFAZolin 2 GM in SODIUM CHLORIDE 0.9% MINIBAG 100 ML IV SCH ×2 (15:44→23:47)
[2018-07-13] MEDS: SODIUM CHLORIDE FLUSH 0.9% 10 ML SYRINGE IVP SCH ×2 (15:45→23:32)
[2018-07-13] MEDS: PROCHLORPERAZINE 10 MG/2 ML VIAL IVP PRN ×2 (16:05→23:35)
--- NOTE | 2018-07-13 17:19 | IMMEDIATE POSTOPERATIVE NOTE ---
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 To be imperative antibiotics perioperative DVT prophylaxis mechanical and chemical. Should use incentive primary nightly hour when awake. She will be out of bed with physical therapy and assistive device and assistance as necessary.
[2018-07-13] MEDS: APIXABAN 2.5 MG TABLET PO SCH (20:40)
[2018-07-14] MEDS: HYDROmorphone 0.5 MG/0.5 ML SYRINGE IVP PRN ×2 (04:37→08:07)
[2018-07-14] MEDS: SODIUM CHLORIDE FLUSH 0.9% 10 ML SYRINGE IVP PRN ×3 (04:38→10:38)
[2018-07-14] MEDS ORDERED: NITROGLYCERIN SL 0.4 MG TABLET SL PRN (06:47)
[2018-07-14] MEDS: PROCHLORPERAZINE 10 MG/2 ML VIAL IVP PRN (08:07)
[2018-07-14] MEDS: HYDROcod/ACETAM 5/325 MG TABLET PO PRN ×3 (08:07→21:09)
[2018-07-14] MEDS: APIXABAN 2.5 MG TABLET PO SCH ×2 (08:07→21:09)
[2018-07-14] MEDS: LEVOTHYROXINE 112 MCG TABLET PO SCH (08:10)
[2018-07-14] MEDS: SODIUM CHLORIDE FLUSH 0.9% 10 ML SYRINGE IVP SCH ×2 (08:10→15:52)
[2018-07-14] MEDS ORDERED: LOSARTAN 50 MG TABLET PO SCH (09:00)
[2018-07-14] MEDS: ACETAMINOPHEN 1,000 MG/100 ML 100 ML IV PRN ×2 (10:38→18:34)
--- NOTE | 2018-07-14 12:21 | OPERATIVE REPORT ---
DATE OF SERVICE: 07/13/2018 Physician: Gabino Mercedes MD SURGEON: Gabino Mercedes MD HEAD SWAMPER: None. ANESTHESIOLOGIST: Alberto Gaines CRNA ANESTHESIA TYPE: Subarachnoid block with sedation, local anesthesia 30 mL, 0.5% plain Marcaine. FLUIDS: 1500 mL lactated Ringer's. URINE OUTPUT: 450 mL ESTIMATED BLOOD LOSS: 150 mL TOURNIQUET TIME: 120 minutes at 300 mmHg. PREOPERATIVE DIAGNOSIS: Right knee degenerative joint disease. POSTOPERATIVE DIAGNOSIS: Right knee degenerative joint disease. PROCEDURE: Right total knee arthroplasty. ORTHOPEDIC IMPLANTS 1. Biomet-Vanguard CR lipped tibial bearing, 12 mm. 2. Biomet Vanguard knee CR femur, right, 65 mm. 3. Biomet fixed cruciate tibial plate cemented with interlocking bar, 67 mm. 4. Refobacin bone cement x2. 5. Biomet-Vanguard series A standard patella size 34 x 8.5 mm. HISTORY OF PRESENT ILLNESS AND INDICATIONS: Patient is a 67-year-old female who has had right knee pain and dysfunction associated with degenerative disease. She is indicated for operative treatment. Please see previous clinic discussion for further details of risks, benefits and alternatives. These are highlighted with the patient and the patient's , Eyal, in the preoperative area. Their questions are answered. Patient verbalized her wish to proceed with operative treatment. Informed consent is given. INTRAPROCEDURAL COMPLICATIONS: None noted. INTRAOPERATIVE FINDINGS: Patient is noted to have degenerative disease of all compartments. Post-trialing and implantation, patient has range of motion with full knee extension and flexion over 130 degrees with good stability throughout the arc with appropriate flexion and extension gaps. There is good patellar tracking throughout with no J sign or other evidence of instability. DESCRIPTION OF PROCEDURE: On 07/13/2018, patient is identified in the preoperative care unit. She identifies her right knee as the operative site. This is signed by the operating surgeon. At this point, patient is brought to the operating room after spinal anesthesia is administered. Patient is placed supine on the operating table. Sedation is administered. Patient's right lower extremity has a well-padded tourniquet placed high on the right thigh, taking care to avoid any encumbrance of the genitalia. Patient's right knee area is first pre-scrubbed with Hibiclens solution, then alcohol, and then prepped and draped in the usual sterile fashion. At this time, surgical pause identifies the right knee as the operative site. At this point, Esmarch bandage is used to exsanguinate the limb and tourniquet is inflated. At this point, an anterior incision is made over the right knee, just above the patella all the way to the tibial tuberosity through skin, and then spreading dissection is carried out as the medial plane is developed over the medial patellar retinaculum. At this point, the quadriceps tendon is split longitudinally and then the extensor mechanism, medial retinaculum is incised for a medial parapatellar approach and then, at this point, the fat pad is removed. The patellar tendon is minimally elevated for protection and then ultimately everted, and the knee is flexed. At this point, soft tissues are resected, including the menisci and the ACL. At this point, the intramedullary device is placed into the femur for measurement of a premeasured 7 degrees of valgus, such that it sits flush as estimated by preoperative x-rays on both sides. At this point, distal femur is cut and then attention is directed towards the tibial cut with an extramedullary tibial guide and appropriate slope and neutral varus-valgus. This is cut. Ultimately, once this is cut and the extension gap is measured, it is noted to be in slight valgus, which is corrected. At this point, the femur is sized and then ultimately drilled, and then the 4-in-1 cutting block is used to cut the distal femur. At this time, Flexion and extension gaps are measured and noted to be appropriate. There is good space, which is equal throughout using the block method, also good stability. This required minimal lateral elevation of the soft tissues off the tibia just below the joint line. At this point, trials are placed and noted to have good range of motion and stability throughout, at which point the patella is cut. One for one removal and replacement of the patella thickness is performed and the patella is medialized as much as possible. This is drilled and then trial is placed. After final trialing, and confirmation of good stability and range of motion throughout, the trials are removed. Residual osteophytes are removed, confirmed that there is no significant soft tissue interposed. A small drill is used to drill the somewhat sclerotic areas of the tibial plateau, at which point copious irrigation with pulsatile lavage and meticulous drying is performed, and then implantation using modern cementing technique is performed. It should be noted that both the implants and the bone are cemented and then put together. Tibia is started with impaction of the tibia, followed by removal of excess cement, trial placement and then femur is impacted into place with residual cement removed. Then, patella is placed and held with a clamp with residual cement removed. The edges are confirmed to be free of residual cement. Betadine solution with saline is placed in the joint while the cement is hardened and then, once hardened, the joint is copiously irrigated, reexamined to be free of loose cement. It is decided that a lipped component would be appropriate for stability in this patient, even with retention of the PCL. At this point, after final trial, the final implants are selected. The tibial baseplate is cleared and then the final implant is placed, and then the locking bar is placed. The knee is ranged and noted to have excellent range of motion and stability throughout with appropriate stability in flexion and extension. At this point, copious irrigation is again performed, and then the extensor mechanism repaired using #2 FiberWire and large Vicryl, followed by skin closure using 0 Vicryl, 2- 0 Vicryl, and marichuy. Copious irrigation and hemostasis achieved at every level. The tourniquet is taken down before the end of the case. The skin is washed and dried. Local anesthetic is infused. Silver dressing is applied and a bulky Reina dressing applied to the right lower extremity. Patient tolerated the procedure well. Instrument and sponge counts correct. Patient is transferred to the recovery room in stable condition. Patient will follow standard postoperative total knee protocol, right knee. Patient will be on DVT prophylaxis and perioperative antibiotics. Patient's , Cecilio, is identified in the waiting room. Case is discussed. His questions are answered. He verbalizes understanding and satisfaction with the plan as outlined. TD: 07/14/2018 08:15 ALLI
[2018-07-14] MEDS ORDERED: SODIUM CHLORIDE 0.9% 500 ML IV ONE (13:22)
--- NOTE | 2018-07-14 13:24 | CONSULTATION NOTE ---
Referring Provider Name of Referring Provider:: Dr. Mercedes Consult Date: 07/14/18 Chief Complaint - Chief Complaint Chief Complaint: Planned surgical intervention-right knee arthroplasty History of Present Illness - Admitted From Admitted From:: Direct, planned surgery - History Obtained From Records Reviewed: yes History obtained from: chart review, patient Exam Limitations: none - History of Present Illness HPI Comment/Other: Christina Johns is a 67-year old female with a past medical history of hypertension, hyperlipidemia, abnormal myocardial perfusion testing, chronic angina, GERD, large hiatal hernia, obesity, impaired fasting glucose, iron deficiency anemia, DJD, osteoarthritis, chronic back pain, anxiety disorder, depression, hypothyroidism, status post thyroidectomy, benign left breast mass, psoriasis, sinusitis, allergic rhinitis, bronchospastic airway disease, history of DVT and status post total right knee replacement on 07/13/2018. She has been quite debilitated from her right knee DJD, so underwent a total right knee arthroplasty with Dr. Mercedes, which was a planned procedure without post-op complications. Since the surgery, the patient had been bradycardic, so Hospitalist was consulted to evaluate for this new finding. 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 Mother: HTN, arthritis, hyperlipidemia, osteoporosis, stroke, severe dementia Grandparents: DM Living arrangement: At home Living Situation: With spouse/s.o. 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 She lives independently with her , Eyal, and 2 dogs in [place], [place]. They recently took a trip to [place] for one of their grand-daughter's wedding. The patient denies the use of tobacco, alcohol, or illicit drugs. She wishes to be a FULL code. - Substance History Use: Uses substance without health or social issues: NONE Abuse: Recurrent use of substance despite neg consequences: NONE Dependence: Experiences withdrawal or developed tolerances: NONE - POLST Patient has POLST: No POLST Status: Full Code Meds/Allgy - Home Medications Home Medications: Ambulatory Orders Medication Instructions Recorded Confirmed Levothyroxine Sodium [Synthroid] 112 mcg PO QDAC 05/11/17 07/13/18 Acetaminophen [Tylenol] 650 mg PO Q6H PRN 07/06/18 07/13/18 Aspirin [Aspirin EC] 81 mg PO DAILY 07/06/18 07/06/18 Ibuprofen [Motrin] 600 mg PO Q6H PRN 07/06/18 07/13/18 Losartan Potassium [Cozaar] 100 mg PO DAILY 07/06/18 07/13/18 Nitroglycerin [Nitrostat] 0.4 mg SL Q5MIN PRN 07/06/18 07/06/18 Rosuvastatin Calcium [Crestor] 5 mg PO QPM 07/06/18 07/13/18 - Allergies Allergies/Adverse Reactions: Allergies Allergy/AdvReac Type Severity Reaction Status Date / Time cigarette smoke Allergy Respiratory Verified 07/06/18 10:29 Review of Systems - Constitutional Constitutional: reports: Malaise, Poor appetite - Ears, Nose & Throat Ears, Nose & Throat: reports: Postnasal drainage - Cardiovascular Cariovascular: reports: Edema, Lightheadedness, Decr. exercise tolerance - Respiratory Respiratory: reports: Cough, SOB with exertion - Gastrointestinal Gastrointestinal: reports: Nausea, Reflux/heartburn, Poor appetite - Musculoskeletal Musculoskeletal: reports: Back pain, Muscle aches, Joint pain, Joint swelling - Integumentary Integumentary: reports: Dryness - Neurological Neurological: reports: General weakness, Dizziness, Pre-existing deficit, Abnormal gait - Psychiatric Psychiatric: reports: Depression, Anxiety - All Other Systems All Other Systems: reports: Reviewed and negative Exam - Vital Signs Reviewed Vital Signs: Yes Vital Signs: Vital Signs x48h Temp Pulse Resp BP BP Pulse Ox 07/14/18 11:52 60 126/47 L 90 L 07/14/18 11:50 61 16 120/55 L 07/14/18 08:04 37.0 C 65 18 134/58 H 97 - Physical Exam General Appearance: positive: No acute distress, Alert Eyes Bilateral: positive: Normal inspection, PERRL ENT: positive: ENT inspection nml, Pharynx nml, No signs of dehydration Neck: positive: Thyroid nml, No JVD, Trachea midline Respiratory: positive: Chest non-tender, No respiratory distress, Breath sounds nml Cardiovascular: positive: Regular rate & rhythm, No gallop, Systolic murmur Peripheral Pulses: positive: 2+ Abdomen: positive: Non-tender, Nml bowel sounds, Other (full, rounded, soft) Back: positive: Nml inspection Skin: positive: No rash, Warm, Dry, Pallor Extremities: positive: Pedal edema, Joint swelling (right knee) Neurologic/Psychiatric: positive: Oriented x3, CN's nml (2-12), Motor nml, Sensation nml, Depressed mood/affect Reflexes: Bicep (R): 3+, Bicep (L): 3+ Conclusion/Plan - Diagnosis Diagnosis: Bradycardia following surgery. Vasovagal near syncope. Orthostatic hypotension. Status post total right knee replacement. Uncontrolled pain. Chronic angina - Plan Plan: Diagnoses: Bradycardia following surgery Vasovagal near syncope Orthostatic hypotension Status post total right knee replacement Uncontrolled pain Chronic angina Work up: Labs including troponin, CBC, CMP, TSH, hemoglobin A1C, magnesium, d dimer, and a lipid panel; Lipid panel is pending for the AM, d dimer is elevated, but echo did not show any pulmonary abnormalities. Telemetry shows no pauses, with heart rates in the 70's. An echocardiogram showed a normal EF of 65-70%, No LVH, no regional wall motion abnormalities, no valve abnormalities except for mild mitral regurg, no thrombus or pericardial effusion was noted. Orthostatic vital signs prove to be positive; sitting 163/75 heart rate 77, and standing 129/44 heart rate 69, the patient c/o dizziness and nausea during this episode. It appears as though her heart is not compensating appropriately with her rate going lower when it should have gone higher to help maintain her blood pressure. Plan: Continue on telemetry, continue orthostatic blood pressures Q shift, if no improvement, may consider midodrine. - Lab Results Lab results reviewed: Yes Fish Bones: 07/14/18 13:41 07/14/18 13:41 - Diagnostic Imaging Results Diagnostic Imaging Results: positive: Final report reviewed Diagnostic Imaging Results Comments: EXAM: CHEST RADIOGRAPHY EXAM DATE: 07/14/2018 01:17 PM FINDINGS: Lungs/Pleura: No focal opacities evident. No pleural effusion. No pneumothorax. Mediastinum: Within exam limitations, the cardiomediastinal contour is normal. Other: Large hiatal hernia re-demonstrated. IMPRESSION: No focal consolidation. - EKG Results EKG Interpreted Independently: Yes EKG Comparison: Unchanged from prior EKG EKG Findings: sinus
--- NOTE | 2018-07-14 13:35 | XRAY Report ---
Reason: hypotension, bradycardia Procedure Date: 07/14/2018 Accession Number: [id number] / [id number] Procedure: XR - Chest 1 View X-Ray CPT Code: 60475 FULL RESULT: EXAM: CHEST RADIOGRAPHY EXAM DATE: 07/14/2018 01:17 PM. CLINICAL HISTORY: Postop hypotension. COMPARISON: CHEST 2 VIEW 05/11/2017 8:39 PM. TECHNIQUE: 1 view. FINDINGS: Lungs/Pleura: No focal opacities evident. No pleural effusion. No pneumothorax. Mediastinum: Within exam limitations, the cardiomediastinal contour is normal. Other: Large hiatal hernia redemonstrated. IMPRESSION: No focal consolidation. RADIA
[2018-07-14 13:45] LABS: BASOPHILS % (AUTO) 0.2 %; HGB - HEMOGLOBIN 9.3 g/dL (12.0-16.0); LYMPHOCYTES # (AUTO) 0.8 10^3/uL (1.5-3.5); LYMPHOCYTES % (AUTO) 6.9 %; MEAN CORPUSCULAR HEMOGLOBIN 23.7 pg (27.0-31.0); MEAN CORPUSCULAR HGB CONC 31.4 g/dL (32.0-36.0); MEAN CORPUSCULAR VOLUME 75.5 fL (81.0-99.0); MEAN PLATELET VOLUME 7.6 fL (7.9-10.8); MONOCYTES # (AUTO) 1.1 10^3/uL (0.0-1.0); NEUTROPHILS # (AUTO) 9.3 10^3/uL (1.5-6.6); NEUTROPHILS % (AUTO) 82.9 %; PLT - PLATELET COUNT 261 10^3/uL (130-450); RED BLOOD COUNT 3.92 10^6/uL (4.20-5.40); RED CELL DISTRIBUTION WIDTH 16.1 % (12.0-15.0); WHITE BLOOD COUNT 11.2 x10^3/uL (4.8-10.8)
[2018-07-14 14:02] LABS: ALBUMIN 3.3 g/dL (3.2-5.5); ALBUMIN/GLOBULIN RATIO 1.2 (1.0-2.2); BILIRUBIN,TOTAL 0.6 mg/dL (0.2-1.0); CALCIUM 8.4 mg/dL (8.5-10.3); CREATININE 0.7 mg/dL (0.4-1.0); TOTAL PROTEIN 6.1 g/dL (6.7-8.2)
[2018-07-14 14:11] LABS: INR 1.4 (0.8-1.2); PT - PROTHROMBIN TIME 15.3 secs (9.9-12.6)
[2018-07-14 14:22] LABS: HB2 TOTAL 9.9 g/dL; HEMOGLOBIN A1C 0.36 g/dL; HEMOGLOBIN A1C % 5.5 % (4.6-6.2)
--- NOTE | 2018-07-14 16:47 | PROVIDER PROGRESS NOTE ---
Subjective - Prog Note Date Prog Note Date: 07/14/18 Prog Note Time: 07:15 - Subjective Pt reports feeling: Improved (Patient reportedly had some pain overnight which was controlled with pain medications she said in the morning when seen and evaluated that she was feeling better she is accompanied by her Cecilio.) Objective - Vital Signs/Intake & Output Vital Signs: Vital Signs x48h Pulse Resp BP Pulse Ox 07/14/18 15:09 76 149/55 H 07/14/18 11:52 60 126/47 L 90 L 07/14/18 11:50 61 16 120/55 L Intake & Output: Intake & Output 07/11/18 07/12/18 07/13/18 07/14/18 23:59 23:59 23:59 23:59 Intake Total 2905 1380 Output Total 1850 1850 Balance 1055 -470 - Lab Results Fish Bones: 07/14/18 13:41 07/14/18 13:41 Other Labs: Lab Results x24hrs 07/14/18 07/14/18 07/14/18 Range/Units 13:41 13:41 13:41 WBC (4.8-10.8) x10^3/uL RBC (4.20-5.40) 10^6/uL Hgb (12.0-16.0) g/dL Hct (37.0-47.0) % MCV (81.0-99.0) fL MCH (27.0-31.0) pg MCHC (32.0-36.0) g/dL RDW (12.0-15.0) % Plt Count (130-450) 10^3/uL MPV (7.9-10.8) fL Neut # (Auto) (1.5-6.6) 10^3/uL Lymph # (Auto) (1.5-3.5) 10^3/uL [place] # (Auto) (0.0-1.0) 10^3/uL Eos # (Auto) (0.0-0.7) 10^3/uL Baso # (Auto) (0.0-0.1) 10^3/uL Absolute Nucleated RBC x10^3/uL Nucleated RBC % /100WBC PT 15.3 H (9.9-12.6) secs INR 1.4 H (0.8-1.2) D-Dimer (200.0-255.0) ng/mL Sodium (135-145) mmol/L Potassium (3.5-5.0) mmol/L Chloride (101-111) mmol/L Carbon Dioxide (21-32) mmol/L Anion Gap (6-13) BUN (6-20) mg/dL Creatinine (0.4-1.0) mg/dL Estimated GFR (MDRD) (>89) Glucose (70-100) mg/dL Glycated Hemoglobin 5.5 (4.6-6.2) % Estim Average Glucose 111 H (70-100) Calcium (8.5-10.3) mg/dL Magnesium (1.7-2.8) mg/dL Total Bilirubin (0.2-1.0) mg/dL AST (10-42) IU/L ALT (10-60) IU/L Alkaline Phosphatase (42-121) IU/L Troponin I (<0.49) ng/mL Total Protein (6.7-8.2) g/dL Albumin (3.2-5.5) g/dL Globulin (2.1-4.2) g/dL Albumin/Globulin Ratio (1.0-2.2) TSH 0.66 (0.34-5.60) uIU/mL 07/14/18 07/14/18 07/14/18 Range/Units 13:41 13:41 13:41 WBC (4.8-10.8) x10^3/uL RBC (4.20-5.40) 10^6/uL Hgb (12.0-16.0) g/dL Hct (37.0-47.0) % MCV (81.0-99.0) fL MCH (27.0-31.0) pg MCHC (32.0-36.0) g/dL RDW (12.0-15.0) % Plt Count (130-450) 10^3/uL MPV (7.9-10.8) fL Neut # (Auto) (1.5-6.6) 10^3/uL Lymph # (Auto) (1.5-3.5) 10^3/uL [place] # (Auto) (0.0-1.0) 10^3/uL Eos # (Auto) (0.0-0.7) 10^3/uL Baso # (Auto) (0.0-0.1) 10^3/uL Absolute Nucleated RBC x10^3/uL Nucleated RBC % /100WBC PT (9.9-12.6) secs INR (0.8-1.2) D-Dimer 436.4 H (200.0-255.0) ng/mL Sodium (135-145) mmol/L Potassium (3.5-5.0) mmol/L Chloride (101-111) mmol/L Carbon Dioxide (21-32) mmol/L Anion Gap (6-13) BUN (6-20) mg/dL Creatinine (0.4-1.0) mg/dL Estimated GFR (MDRD) (>89) Glucose (70-100) mg/dL Glycated Hemoglobin (4.6-6.2) % Estim Average Glucose (70-100) Calcium (8.5-10.3) mg/dL Magnesium 1.9 (1.7-2.8) mg/dL Total Bilirubin (0.2-1.0) mg/dL AST (10-42) IU/L ALT (10-60) IU/L Alkaline Phosphatase (42-121) IU/L Troponin I < 0.04 (<0.49) ng/mL Total Protein (6.7-8.2) g/dL Albumin (3.2-5.5) g/dL Globulin (2.1-4.2) g/dL Albumin/Globulin Ratio (1.0-2.2) TSH (0.34-5.60) uIU/mL 07/14/18 07/14/18 Range/Units 13:41 13:41 WBC 11.2 H (4.8-10.8) x10^3/uL RBC 3.92 L (4.20-5.40) 10^6/uL Hgb 9.3 L (12.0-16.0) g/dL Hct 29.6 L (37.0-47.0) % MCV 75.5 L (81.0-99.0) fL MCH 23.7 L (27.0-31.0) pg MCHC 31.4 L (32.0-36.0) g/dL RDW 16.1 H (12.0-15.0) % Plt Count 261 (130-450) 10^3/uL MPV 7.6 L (7.9-10.8) fL Neut # (Auto) 9.3 H (1.5-6.6) 10^3/uL Lymph # (Auto) 0.8 L (1.5-3.5) 10^3/uL [place] # (Auto) 1.1 H (0.0-1.0) 10^3/uL Eos # (Auto) 0.0 (0.0-0.7) 10^3/uL Baso # (Auto) 0.0 (0.0-0.1) 10^3/uL Absolute Nucleated RBC 0.00 x10^3/uL Nucleated RBC % 0.0 /100WBC PT (9.9-12.6) secs INR (0.8-1.2) D-Dimer (200.0-255.0) ng/mL Sodium 137 (135-145) mmol/L Potassium 3.8 (3.5-5.0) mmol/L Chloride 100 L (101-111) mmol/L Carbon Dioxide 27 (21-32) mmol/L Anion Gap 10.0 (6-13) BUN 17 (6-20) mg/dL Creatinine 0.7 (0.4-1.0) mg/dL Estimated GFR (MDRD) 83 L (>89) Glucose 146 H (70-100) mg/dL Glycated Hemoglobin (4.6-6.2) % Estim Average Glucose (70-100) Calcium 8.4 L (8.5-10.3) mg/dL Magnesium (1.7-2.8) mg/dL Total Bilirubin 0.6 (0.2-1.0) mg/dL AST 21 (10-42) IU/L ALT 15 (10-60) IU/L Alkaline Phosphatase 76 (42-121) IU/L Troponin I (<0.49) ng/mL Total Protein 6.1 L (6.7-8.2) g/dL Albumin 3.3 (3.2-5.5) g/dL Globulin 2.8 (2.1-4.2) g/dL Albumin/Globulin Ratio 1.2 (1.0-2.2) TSH (0.34-5.60) uIU/mL - Other Results/Comments Other Results/Comments: Patient sitting up in bed she reports being relatively comfortable. She says she has some soreness in the knee overnight which is improved. She has palpable dorsalis pedis and posterior tibial pulse. She able to flex and extend toes and ankle. Calf is soft. No focal tenderness in the calf. She is mild tenderness about the knee. She is able to extend to about -3 degrees actively active assisted gets her closer to 180 degrees though with discomfort and guarding. Flexion is about 45 degrees she has a nice smooth range of motion. Thigh and calf soft.There is a broad soft dressing from toes to thigh though the primary dressing revealed at the knee is clean dry and intact. Assessment/Plan - Problem List (1) Status post total right knee replacement Impression: Jayla is a 67-year-old female who was doing well the morning postoperative day #1 status post right total knee arthroplasty. She had had some pain overnight which is controlled. She would be kept on perioperative DVT prophylaxis mecha nical and chemical. She should be on perioperative antibiotic 24 hours. She would be out of bed with physical therapy and doing exercises in bed as well. Should use incentive spirometer every hour while awake. She would have analgesic medication and bowel regimen medication as well. And she would also be on her home medications. The above was discussed with the patient the patient's in the morning she verbalized understanding after answers to questions and after surgery was discussed. Of note this afternoon we are made aware of an episode of hypotension at 100/39 as well as bradycardia at 44. Patient reportedly felt lightheaded. This was after physical therapy and going to the bathroom. Recommended EKG chest x-ray as well as hospitalist consultation to evaluate and treat. This work-up and treatment was initiated.
[2018-07-14] MEDS ORDERED: ATORVASTATIN 10 MG TABLET PO SCH (21:00)
[2018-07-14] MEDS ORDERED: NON FORMULARY MED (Rosuvastatin Calcium [Crestor] 5 MG) PO SCH (21:00)
[2018-07-14] MEDS ORDERED: ATORVASTATIN 40 MG TABLET PO SCH (21:00)
[2018-07-15] MEDS: SODIUM CHLORIDE FLUSH 0.9% 10 ML SYRINGE IVP SCH ×3 (00:57→18:06)
[2018-07-15] MEDS: HYDROcod/ACETAM 5/325 MG TABLET PO PRN ×3 (03:59→12:21)
[2018-07-15] MEDS: LEVOTHYROXINE 112 MCG TABLET PO SCH (06:04)
[2018-07-15 06:35] LABS: CHOL/HDL RATIO 2.6 (<4.4); CHOLESTEROL 95 mg/dL; HDL CHOLESTEROL 37 mg/dL; LDL CHOLESTEROL,CALCULATED 45 mg/dL; LDL/HDL RATIO 1.2 (<4.4); VLDL CHOLESTEROL 13 mg/dL
[2018-07-15] MEDS: APIXABAN 2.5 MG TABLET PO SCH (08:18)
[2018-07-15] MEDS ORDERED: APIXABAN 5 MG TABLET PO SCH ×2 (09:00→21:00)
[2018-07-15] MEDS ORDERED: DOCUSATE SODIUM 250 MG CAPSULE PO SCH (09:00)
[2018-07-15] MEDS ORDERED: SENNA 8.6 MG TABLET PO SCH (09:00)
[2018-07-15] MEDS ORDERED: LOSARTAN 50 MG TABLET PO SCH (09:00)
[2018-07-15] MEDS ORDERED: APIXABAN 2.5 MG TABLET PO ONE (09:00)
[2018-07-15] MEDS ORDERED: POLYETHYLENE GLYCOL 3350 17 GM PACKET PO SCH (10:15)
--- NOTE | 2018-07-15 12:02 | PROVIDER PROGRESS NOTE ---
Subjective - Prog Note Date Prog Note Date: 07/15/18 Prog Note Time: 07:15 - Subjective Pt reports feeling: Improved (Patient says she is doing okay this morning she denies any episodes of lightheaded or dizziness. She said she had some pain though that was controlled with pain medication. Her Cecilio is at the bedside.) Objective - Vital Signs/Intake & Output Vital Signs: Vital Signs x48h Temp Pulse Resp BP Pulse Ox 07/15/18 11:31 37.3 C 70 16 145/61 H 96 07/15/18 07:35 36.9 C 83 16 158/64 H 95 Intake & Output: Intake & Output 07/12/18 07/13/18 07/14/18 07/15/18 23:59 23:59 23:59 23:59 Intake Total 2905 1720 Output Total 1850 3270 650 Balance 1055 -1550 -650 - Lab Results Fish Bones: 07/14/18 13:41 07/14/18 13:41 Other Labs: Lab Results x24hrs 07/15/18 07/14/18 07/14/18 Range/Units 06:04 13:41 13:41 WBC (4.8-10.8) x10^3/uL RBC (4.20-5.40) 10^6/uL Hgb (12.0-16.0) g/dL Hct (37.0-47.0) % MCV (81.0-99.0) fL MCH (27.0-31.0) pg MCHC (32.0-36.0) g/dL RDW (12.0-15.0) % Plt Count (130-450) 10^3/uL MPV (7.9-10.8) fL Neut # (Auto) (1.5-6.6) 10^3/uL Lymph # (Auto) (1.5-3.5) 10^3/uL [place] # (Auto) (0.0-1.0) 10^3/uL Eos # (Auto) (0.0-0.7) 10^3/uL Baso # (Auto) (0.0-0.1) 10^3/uL Absolute Nucleated RBC x10^3/uL Nucleated RBC % /100WBC PT (9.9-12.6) secs INR (0.8-1.2) D-Dimer (200.0-255.0) ng/mL Sodium (135-145) mmol/L Potassium (3.5-5.0) mmol/L Chloride (101-111) mmol/L Carbon Dioxide (21-32) mmol/L Anion Gap (6-13) BUN (6-20) mg/dL Creatinine (0.4-1.0) mg/dL Estimated GFR (MDRD) (>89) Glucose (70-100) mg/dL Glycated Hemoglobin 5.5 (4.6-6.2) % Estim Average Glucose 111 H (70-100) Calcium (8.5-10.3) mg/dL Magnesium (1.7-2.8) mg/dL Total Bilirubin (0.2-1.0) mg/dL AST (10-42) IU/L ALT (10-60) IU/L Alkaline Phosphatase (42-121) IU/L Troponin I (<0.49) ng/mL Total Protein (6.7-8.2) g/dL Albumin (3.2-5.5) g/dL Globulin (2.1-4.2) g/dL Albumin/Globulin Ratio (1.0-2.2) Triglycerides 66 ( - 149) mg/dL Cholesterol 95 ( - 199) mg/dL LDL Cholesterol, Calc 45 ( - 129) mg/dL VLDL Cholesterol 13 mg/dL HDL Cholesterol 37 L (60 - ) mg/dL LDL/HDL Ratio 1.2 (<4.4) Cholesterol/HDL Ratio 2.6 (<4.4) TSH 0.66 (0.34-5.60) uIU/mL 07/14/18 07/14/18 07/14/18 Range/Units 13:41 13:41 13:41 WBC (4.8-10.8) x10^3/uL RBC (4.20-5.40) 10^6/uL Hgb (12.0-16.0) g/dL Hct (37.0-47.0) % MCV (81.0-99.0) fL MCH (27.0-31.0) pg MCHC (32.0-36.0) g/dL RDW (12.0-15.0) % Plt Count (130-450) 10^3/uL MPV (7.9-10.8) fL Neut # (Auto) (1.5-6.6) 10^3/uL Lymph # (Auto) (1.5-3.5) 10^3/uL [place] # (Auto) (0.0-1.0) 10^3/uL Eos # (Auto) (0.0-0.7) 10^3/uL Baso # (Auto) (0.0-0.1) 10^3/uL Absolute Nucleated RBC x10^3/uL Nucleated RBC % /100WBC PT 15.3 H (9.9-12.6) secs INR 1.4 H (0.8-1.2) D-Dimer (200.0-255.0) ng/mL Sodium (135-145) mmol/L Potassium (3.5-5.0) mmol/L Chloride (101-111) mmol/L Carbon Dioxide (21-32) mmol/L Anion Gap (6-13) BUN (6-20) mg/dL Creatinine (0.4-1.0) mg/dL Estimated GFR (MDRD) (>89) Glucose (70-100) mg/dL Glycated Hemoglobin (4.6-6.2) % Estim Average Glucose (70-100) Calcium (8.5-10.3) mg/dL Magnesium 1.9 (1.7-2.8) mg/dL Total Bilirubin (0.2-1.0) mg/dL AST (10-42) IU/L ALT (10-60) IU/L Alkaline Phosphatase (42-121) IU/L Troponin I < 0.04 (<0.49) ng/mL Total Protein (6.7-8.2) g/dL Albumin (3.2-5.5) g/dL Globulin (2.1-4.2) g/dL Albumin/Globulin Ratio (1.0-2.2) Triglycerides ( - 149) mg/dL Cholesterol ( - 199) mg/dL LDL Cholesterol, Calc ( - 129) mg/dL VLDL Cholesterol mg/dL HDL Cholesterol (60 - ) mg/dL LDL/HDL Ratio (<4.4) Cholesterol/HDL Ratio (<4.4) TSH (0.34-5.60) uIU/mL 07/14/18 07/14/18 07/14/18 Range/Units 13:41 13:41 13:41 WBC 11.2 H (4.8-10.8) x10^3/uL RBC 3.92 L (4.20-5.40) 10^6/uL Hgb 9.3 L (12.0-16.0) g/dL Hct 29.6 L (37.0-47.0) % MCV 75.5 L (81.0-99.0) fL MCH 23.7 L (27.0-31.0) pg MCHC 31.4 L (32.0-36.0) g/dL RDW 16.1 H (12.0-15.0) % Plt Count 261 (130-450) 10^3/uL MPV 7.6 L (7.9-10.8) fL Neut # (Auto) 9.3 H (1.5-6.6) 10^3/uL Lymph # (Auto) 0.8 L (1.5-3.5) 10^3/uL [place] # (Auto) 1.1 H (0.0-1.0) 10^3/uL Eos # (Auto) 0.0 (0.0-0.7) 10^3/uL Baso # (Auto) 0.0 (0.0-0.1) 10^3/uL Absolute Nucleated RBC 0.00 x10^3/uL Nucleated RBC % 0.0 /100WBC PT (9.9-12.6) secs INR (0.8-1.2) D-Dimer 436.4 H (200.0-255.0) ng/mL Sodium 137 (135-145) mmol/L Potassium 3.8 (3.5-5.0) mmol/L Chloride 100 L (101-111) mmol/L Carbon Dioxide 27 (21-32) mmol/L Anion Gap 10.0 (6-13) BUN 17 (6-20) mg/dL Creatinine 0.7 (0.4-1.0) mg/dL Estimated GFR (MDRD) 83 L (>89) Glucose 146 H (70-100) mg/dL Glycated Hemoglobin (4.6-6.2) % Estim Average Glucose (70-100) Calcium 8.4 L (8.5-10.3) mg/dL Magnesium (1.7-2.8) mg/dL Total Bilirubin 0.6 (0.2-1.0) mg/dL AST 21 (10-42) IU/L ALT 15 (10-60) IU/L Alkaline Phosphatase 76 (42-121) IU/L Troponin I (<0.49) ng/mL Total Protein 6.1 L (6.7-8.2) g/dL Albumin 3.3 (3.2-5.5) g/dL Globulin 2.8 (2.1-4.2) g/dL Albumin/Globulin Ratio 1.2 (1.0-2.2) Triglycerides ( - 149) mg/dL Cholesterol ( - 199) mg/dL LDL Cholesterol, Calc ( - 129) mg/dL VLDL Cholesterol mg/dL HDL Cholesterol (60 - ) mg/dL LDL/HDL Ratio (<4.4) Cholesterol/HDL Ratio (<4.4) TSH (0.34-5.60) uIU/mL - Other Results/Comments Other Results/Comments: Right lower extremity remains neurovascularly unchanged distally. She is able to flex and extend toes and ankle with good comfort. She is able to do a single leg straight raise with no's assistance. She is able to do heel slide and get flexion of the knee to about 45 to 50 degrees. And she is able to extend to about -3 to 5 degrees. Active assisted helps increase each of those in a few degrees. Thigh and calf soft nontender. Assessment/Plan - Problem List (1) Status post total right knee replacement Impression: Jayla is a 67-year-old female status post right total knee arthroplasty day #2. We did discuss her episode of hypotension and bradycardia not only this morning we spoke about it last evening after a second visit. She denies current symptoms of that. We will recommend continued physical therapy with assistance and assistive device. We will see how she progresses in therapy. We talked about the importance of safety first and foremost. Pending physical therapy success and patient demonstrating safety for her expected home environment with assistance and assistive device as necessary we may consider discharge. This will also be pending no recurrent episodes of hypotensi on/bradycardia. Meantime we will look forward to any input from the hospitalist who is consulted in this case. We also spent time going over the importance of knee extension exercises as well as knee flexion exercises and the importance of participation in therapy and home exercises. Patient will be kept on perioperative oral anticoagulants mechanical DVT prophylaxis incentive spirometer analgesics as necessary and baseline medications. We would expect likely discharge tomorrow if she is successful with all the above. Patient and patient's questions answered they verbalized unders tanding and satisfaction with the plan.
[2018-07-15] MEDS ORDERED: HYDROcod/ACETAM 5/325 MG TABLET PO PRN (16:31)
[2018-07-15] MEDS ORDERED: HYDROmorphone 0.5 MG/0.5 ML SYRINGE IVP PRN (16:31)
[2018-07-15] MEDS ORDERED: ACETAMINOPHEN 325 MG TABLET PO PRN (16:31)
[2018-07-15] MEDS ORDERED: NITROGLYCERIN SL 0.4 MG TABLET SL PRN (16:32)
[2018-07-15] MEDS ORDERED: HYDROmorphone 1 MG/ML CARPUJECT IVP PRN (16:32)
[2018-07-15] MEDS ORDERED: ONDANSETRON 4 MG/2 ML VIAL IVP PRN (16:32)
[2018-07-15] MEDS ORDERED: SODIUM CHLORIDE FLUSH 0.9% 10 ML SYRINGE IVP PRN (16:33)
[2018-07-15] MEDS ORDERED: ACETAMINOPHEN 1,000 MG/100 ML 100 ML IV PRN (16:33)
[2018-07-15] MEDS ORDERED: PROCHLORPERAZINE 10 MG/2 ML VIAL IVP PRN (16:33)
--- NOTE | 2018-07-15 18:36 | PROVIDER PROGRESS NOTE ---
Subjective - Prog Note Date Prog Note Date: 07/15/18 Prog Note Time: 09:00 - Subjective Pt reports feeling: Improved Subjective: Christina states that her appetite continues to be poor, but this improves if she is in the chair. She states that she has not moved her bowels today, and not since before surgery. Current Medications - Current Medications Current Medications: Active Medications: Acetaminophen (Tylenol) 650 - 975 mg PO Q4HR PRN Hydrocodone Bitart/Acetaminophen ([place] 5/325) 1 tab PO Q4HR PRN Apixaban (Eliquis) 5 mg PO BID DREW Docusate Sodium (Colace 250mg Capsule) 250 - 500 mg PO DAILY DREW Hydromorphone HCl (Dilaudid Inj Syringe) 0.5 mg IVP Q2H PRN Hydromorphone HCl (Dilaudid Inj Carp) 1 mg IVP Q2HR PRN Acetaminophen (Ofirmev) 100 mls @ 400 mls/hr IV Q6HR PRN Levothyroxine Sodium (Synthroid) 112 mcg PO QDAC DREW Losartan Potassium (Cozaar) 50 mg PO BID DREW Nitroglycerin (Nitrostat) 0.4 mg SL Q5MIN PRN Ondansetron HCl (Zofran Inj) 4 mg IVP Q6HR PRN Polyethylene Glycol (Miralax) 17 gm PO DAILY DREW Prochlorperazine Edisylate (Compazine Inj) 10 mg IVP Q6HR PRN Senna (Senokot) 8.6 - 17.2 mg PO DAILY [facility] HOME meds: Levothyroxine Sodium [Synthroid] 112 mcg PO QDAC 05/11/17 Acetaminophen [Tylenol] 650 mg PO Q6H PRN 07/06/18 Aspirin [Aspirin EC] 81 mg PO DAILY 07/06/18 Ibuprofen [Motrin] 600 mg PO Q6H PRN 07/06/18 Losartan Potassium [Cozaar] 100 mg PO DAILY 07/06/18 Nitroglycerin [Nitrostat] 0.4 mg SL Q5MIN PRN 07/06/18 Rosuvastatin Calcium [Crestor] 5 mg PO QPM 07/06/18 Objective - Vital Signs/Intake & Output Reviewed Vital Signs: Yes Vital Signs: Vital Signs x48h Temp Pulse Resp BP BP Pulse Ox 07/15/18 15:33 37.3 C 74 18 147/58 H 97 07/15/18 15:00 37.0 C 87 16 158/67 H 98 07/15/18 11:31 37.3 C 70 16 145/61 H 96 Intake & Output: Intake & Output 07/12/18 07/13/18 07/14/18 07/15/18 23:59 23:59 23:59 23:59 Intake Total 2905 1720 240 Output Total 1850 3270 650 Balance 1055 -1550 -410 - Objective General Appearance: positive: No acute distress, Alert Eyes Bilateral: positive: PERRL ENT: positive: Pharynx nml, No signs of dehydration Neck: positive: Thyroid nml, No JVD, Trachea midline Respiratory: positive: Chest non-tender, No respiratory distress, Breath sounds nml Cardiovascular: positive: Regular rate & rhythm, No gallop, Systolic murmur Peripheral Pulses: 1+ Radial (R), 1+ Radial (L) Abdomen: positive: Non-tender, Nml bowel sounds Back: positive: Nml inspection Skin: positive: Color nml, No rash, Warm, Dry Extremities: positive: Pedal edema, Joint swelling (right knee, edema great on right than left) Neurologic/Psychiatric: positive: Oriented x3, CN's nml (2-12), Motor nml, Sensation nml, Mood/affect nml Reflexes: Bicep (R): 3+, Bicep (L): 3+ - Lab Results Fish Bones: 07/16/18 04:40 07/16/18 04:40 Other Labs: Lab Results x24hrs 07/15/18 Range/Units 06:04 Triglycerides 66 ( - 149) mg/dL Cholesterol 95 ( - 199) mg/dL LDL Cholesterol, Calc 45 ( - 129) mg/dL VLDL Cholesterol 13 mg/dL HDL Cholesterol 37 L (60 - ) mg/dL LDL/HDL Ratio 1.2 (<4.4) Cholesterol/HDL Ratio 2.6 (<4.4) ABX Reporting Has patient been on IV antibiotics over the past 48 hours?: Yes Assessment/Plan - Problem List (1) Bradycardia following surgery Impression: - Resolved today Plan: D/C tele (2) Vasovagal near syncope Impression: - Resolved by review of orthostatic readings in the chart Plan: Continue to monitor vital signs, encourage slow changes of position (3) Status post total right knee replacement Impression: - Post op day #3 Plan: Signing off today after RLE doppler is resulted (4) Abnormal myocardial perfusion study Impression: - February 2018 - No related to this event Plan: Continue to monitor, d/c tele (5) Chronic stable angina Impression: - Mixed with chronic large hiatal hernia Plan: Continue to monitor for s/s, give H2 vangie (6) Right calf pain Impression: - Increased Eliquis to theraputic dosing of 5 mg PO BID, given prior history of DVT - On exam, tenderness and swelling noted to RLE, increased warmth - Duplex doppler study is negative for thrombosis Plan: Continue Eliquis, since negative ok to reduce to DVT prophylaxis dose (7) Constipation Impression: - Drinking prune juice with good results Plan: Add miralax, daily senna if needed, encourage ambulation if tolerated Qualifiers: Constipation type: slow transit constipation Qualified Code(s): K59.01 - Slow transit constipation
--- NOTE | 2018-07-15 19:55 | Ultrasound Report ---
Reason: RLE swelling, warmth, pain, hx DVT, post-op Procedure Date: 07/15/2018 Accession Number: [id number] / [id number] Procedure: US - Duplex Ext Veins Right CPT Code: FULL RESULT: EXAM: RIGHT LOWER EXTREMITY VENOUS ULTRASOUND EXAM DATE: 07/15/2018 05:08 PM. CLINICAL HISTORY: Status post right knee replacement with right leg pain. COMPARISON: None. TECHNIQUE: Real-time sonographic vascular imaging was performed by the financial analysis manager through the lower extremity utilizing both color-flow and Doppler spectral analysis. Multiple medical representative static images were saved for review. FINDINGS: Common Femoral Vein (CFV): Normal. CFV-GSV Junction: Normal. Profunda Femoral Vein (PFV): Normal. Femoral Vein (FV) Prox: Normal. Femoral Vein (FV) Mid: Normal. Femoral Vein (FV) Dist: Normal. Popliteal Vein: Normal. Posterior Tibial Veins: Normal. Peroneal Veins: Normal. Contralateral Side CFV: Normal. Other: None. IMPRESSION: No evidence for deep venous thrombosis. RADIA
[2018-07-15] MEDS: APIXABAN 5 MG TABLET PO SCH (21:08)
[2018-07-15] MEDS: LOSARTAN 50 MG TABLET PO SCH (21:08)
[2018-07-16] MEDS: SODIUM CHLORIDE FLUSH 0.9% 10 ML SYRINGE IVP SCH ×2 (01:17→08:25)
[2018-07-16 04:51] LABS: BASOPHILS % (AUTO) 0.4 %; EOSINOPHILS # (AUTO) 0.1 10^3/uL (0.0-0.7); EOSINOPHILS % (AUTO) 1.3 %; HGB - HEMOGLOBIN 9.1 g/dL (12.0-16.0); LYMPHOCYTES # (AUTO) 1.3 10^3/uL (1.5-3.5); LYMPHOCYTES % (AUTO) 16.9 %; MEAN CORPUSCULAR HEMOGLOBIN 24.1 pg (27.0-31.0); MEAN CORPUSCULAR HGB CONC 31.9 g/dL (32.0-36.0); MEAN CORPUSCULAR VOLUME 75.4 fL (81.0-99.0); MEAN PLATELET VOLUME 7.8 fL (7.9-10.8); MONOCYTES # (AUTO) 0.8 10^3/uL (0.0-1.0); MONOCYTES % (AUTO) 10.8 %; NEUTROPHILS # (AUTO) 5.3 10^3/uL (1.5-6.6); NEUTROPHILS % (AUTO) 70.6 %; PLT - PLATELET COUNT 273 10^3/uL (130-450); RED CELL DISTRIBUTION WIDTH 16.3 % (12.0-15.0); WHITE BLOOD COUNT 7.5 x10^3/uL (4.8-10.8)
[2018-07-16 04:58] LABS: ALBUMIN 3.1 g/dL (3.2-5.5); ALBUMIN/GLOBULIN RATIO 0.9 (1.0-2.2); BILIRUBIN,TOTAL 0.7 mg/dL (0.2-1.0); CALCIUM 8.5 mg/dL (8.5-10.3); CREATININE 0.5 mg/dL (0.4-1.0); TOTAL PROTEIN 6.5 g/dL (6.7-8.2)
[2018-07-16] MEDS ORDERED: LEVOTHYROXINE 112 MCG TABLET PO SCH (07:00)
--- NOTE | 2018-07-16 07:58 | Discharge Plan ---
Discharge Plan Disposition: Home, Self Care Condition: Good Prescriptions: HYDROcod/ACETAM 5/325 [[place] 5/325] 1 tab PO Q4HR PRN #60 tablet PRN Reason: Pain Apixaban [Eliquis] 2.5 mg PO BID 10 Days #20 tablet Docusate Sodium 250Mg Capsule [Colace 250Mg Capsule] 250 - 500 mg PO DAILY PRN #60 capsule PRN Reason: Constipation Senna [Senokot] 8.6 - 17.2 mg PO DAILY PRN #30 tablet PRN Reason: Constipation Diet: Regular Activity Restrictions: assist/assist device as needed (DC INSTRUCTIONS: KEEP DRESSING CLEAN DRY INTACT. DO HOME EXERCISES FOR ACTIVE ASSISTED FLEXION AND EXTENSION OF KNEE INSTRUCTED. NO PILLOW BEHIND KNEE BUT ELEVATE FOOT/ANKLE AT REST. CRUTCHES/WALKER AND ASSIST NEEDED FOR AMB, CALL OFFICE IF PROBLEM/QUESTION/WORSENING OF CONDITION) Instruction Topics: Apixaban oral tablets No Smoking: If you smoke, Please STOP! Call for help. Follow-up with: Judith Maldonado PA-C [Primary Care Provider] -
--- NOTE | 2018-07-16 08:13 | DISCHARGE SUMMARY ---
"Discharge Summary Admit Date: 07/13/18 Discharge Date: 07/16/18 Discharging Provider: RETA Code Status: Attempt Resuscitation Condition at Discharge: Good Discharge Disposition: 01 Home, Self Care - DIAGNOSES Admission Diagnoses: RIGHT KNEE DJD Discharge Diagnoses with Status of Each Condition: RIGHT KNEE DJD- S/P TKA STABLE BRADYCARDIA- STABLE, NEGATIVE WORKUP - HPI History of Present Illness: SEE H&P for further details. R knee djd. indicated for tka as failed non op tx. presented for right TKA after pre-op med risk stratification and optimization. - CONSULTS | PROCEDURES Consultations: Medical Hospitalist Procedures: RTKA RLE venous duplex see chart for further details - HOSPITAL COURSE Hospital Course: Underwent uncomplicated right TKA. analgesic, abx, dvt prophylaxis. Generally progressed well aside from single episode of bradycardia and hypotension and near syncope. s/p PT, while attempting to use bathroom. Medical workup for this was negative. stable on tele and orthostatics improved. Improved in PT, stable. negative duplex for rle. patient eager for d/c please see medical record for further details. - ALLERGIES Allergies/Adverse Reactions: Allergies Allergy/AdvReac Type Severity Reaction Status Date / Time cigarette smoke Allergy Respiratory Verified 07/06/18 10:29 - MEDICATIONS Home Medications: Ambulatory Orders Medication Instructions Recorded Confirmed Levothyroxine Sodium [Synthroid] 112 mcg PO QDAC 05/11/17 07/13/18 Acetaminophen [Tylenol] 650 mg PO Q6H PRN 07/06/18 07/13/18 Losartan Potassium [Cozaar] 100 mg PO DAILY 07/06/18 07/13/18 Nitroglycerin [Nitrostat] 0.4 mg SL Q5MIN PRN 07/06/18 07/06/18 Rosuvastatin Calcium [Crestor] 5 mg PO QPM 07/06/18 07/13/18 Apixaban [Eliquis] 2.5 mg PO BID 10 Days #20 tablet 07/16/18 Docusate Sodium 250Mg Capsule 250 - 500 mg PO DAILY PRN #60 07/16/18 [Colace 250Mg Capsule] capsule HYDROcod/ACETAM 5/325 [[place] 5/325] 1 tab PO Q4HR PRN #60 tablet 07/16/18 Senna [Senokot] 8.6 - 17.2 mg PO DAILY PRN #30 07/16/18 tablet - PHYSICAL EXAM AT DISCHARGE General Appearance: positive: No acute distress Physical Exam Other/Comments: RLE NVID, calves soft nt b/l. Right knee dressing clean dry intact no erythema. knee extension -3deg active 0 with active assist, flex 50-60 with active assist. easy ROM between. initiates toe ankle and knee flex ex easily. - LABS Result Diagrams: 07/16/18 04:40 07/16/18 04:40 - QUALITY (Female Hip Fx Only) Was patient sent home on osteoporosis medication?: No - FOLLOW UP Follow Up: 9-10 days [facility] or sooner if problems, questions, worsening of condition. - TIME SPENT Time Spent in Discharge (Minutes): 45"
[2018-07-16] MEDS: APIXABAN 5 MG TABLET PO SCH (08:24)
[2018-07-16] MEDS: LOSARTAN 50 MG TABLET PO SCH (08:24)
[2018-07-16 08:44] VITALS: BP 137/57
[2018-07-16] MEDS ORDERED: SENNA 8.6 MG TABLET PO SCH (09:00)
[2018-07-16] MEDS ORDERED: DOCUSATE SODIUM 250 MG CAPSULE PO SCH (09:00)
[2018-07-16] MEDS ORDERED: POLYETHYLENE GLYCOL 3350 17 GM PACKET PO SCH (09:00)
== END 2018-07-16 10:56 | disposition home or self-care (01) | DRG 470 ==
LOC: MS2 06:04 → UNDODISIN 07-15 15:43
PROVIDERS: ADMIT Orthopaedic Surgery Sports Medicine; ATTEND Orthopaedic Surgery Sports Medicine
PROC: 0SRC069 Replacement of Right Knee Joint with Oxidized Zirconium on Polyethylene Synthetic Substitute, Cemented, Open Approach (ICD-10-PCS; principal; 2018-07-13 07:30)
DX: M17.11 Unilateral primary osteoarthritis, right knee (principal); I97.191 Other postprocedural cardiac functional disturbances following other surgery; I95.1 Orthostatic hypotension; Y83.8 Other surgical procedures as the cause of abnormal reaction of the patient, or of later complication, without mention of misadventure at the time of the procedure; Y92.230 Patient room in hospital as the place of occurrence of the external cause; I20.9 Angina pectoris, unspecified; I10 Essential (primary) hypertension; E78.5 Hyperlipidemia, unspecified; E89.0 Postprocedural hypothyroidism; J45.909 Unspecified asthma, uncomplicated; J32.9 Chronic sinusitis, unspecified; R94.39 Abnormal result of other cardiovascular function study; K21.9 Gastro-esophageal reflux disease without esophagitis; K44.9 Diaphragmatic hernia without obstruction or gangrene; E66.9 Obesity, unspecified; Z68.29 Body mass index [BMI] 29.0-29.9, adult; R73.02 Impaired glucose tolerance (oral); D50.9 Iron deficiency anemia, unspecified; G89.29 Other chronic pain; M54.9 Dorsalgia, unspecified; F41.9 Anxiety disorder, unspecified; F32.9 Major depressive disorder, single episode, unspecified; F40.240 Claustrophobia; L40.9 Psoriasis, unspecified; H54.7 Unspecified visual loss; Z79.82 Long term (current) use of aspirin; Z79.1 Long term (current) use of non-steroidal anti-inflammatories (NSAID); Z86.718 Personal history of other venous thrombosis and embolism; I95.81 Postprocedural hypotension
CPT/HCPCS: 36415; 71045; 80048; 80053; 80061; 83036; 83721; 83735; 84443; 84484; 85025; 85379; 85610; 93005; 93306; 93971; 97110; 97161; 97530; A9270; J0131; J0690; J1170; J2274; J7120

== ENCOUNTER 2018-07-25 12:35 | Emergency (ER) | payer BC ==
--- NOTE | 2018-07-25 13:03 | ED Physician Documentation ---
PD HPI DYSPNEA - Stated complaint Stated Complaint: syncope/sob/recent knee surgery - Chief complaint Chief Complaint: General - History obtained from History obtained from: Patient - History of Present Illness Timing - onset: Other (1 week of dizzyness /lightheaded after TKR of right knee about 10 days ago. Worse with movement and activitiy. Has H/O DVT 9 yrs ago after meniscus repair, on prophylactic eliquis since the surgery. Some intermittent CP with this.) - Additional information Additional information: She had an indeterminate stress test in April, this was followed by coronary angiogram that she says was completely negative about a month later. 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 : None HEENT: Chronic vision loss, Chronic sinusitis Psych: Depression, Anxiety, Claustrophobia Musculoskeletal: Osteoarthritis, Chronic back pain Derm: Psoriasis - Past Surgical History Past Surgical History: Yes Ortho: Knee replacement, Arthroscopic surgery /IMPLANT COORDINATOR: Other HEENT: Other - Present Medications Home Medications: Ambulatory Orders Medication Instructions Recorded Confirmed Levothyroxine Sodium [Synthroid] 112 mcg PO QDAC 05/11/17 07/13/18 Acetaminophen [Tylenol] 650 mg PO Q6H PRN 07/06/18 07/13/18 Losartan Potassium [Cozaar] 100 mg PO DAILY 07/06/18 07/13/18 Nitroglycerin [Nitrostat] 0.4 mg SL Q5MIN PRN 07/06/18 07/06/18 Rosuvastatin Calcium [Crestor] 5 mg PO QPM 07/06/18 07/13/18 Apixaban [Eliquis] 2.5 mg PO BID 10 Days #20 tablet 07/16/18 Docusate Sodium 250Mg Capsule 250 - 500 mg PO DAILY PRN #60 07/16/18 [Colace 250Mg Capsule] capsule HYDROcod/ACETAM 5/325 [[place] 5/325] 1 tab PO Q4HR PRN #60 tablet 07/16/18 Senna [Senokot] 8.6 - 17.2 mg PO DAILY PRN #30 07/16/18 tablet Ondansetron Odt [Zofran] 4 mg TL Q6H PRN #20 tablet 07/25/18 - Allergies Allergies/Adverse Reactions: Allergies Allergy/AdvReac Type Severity Reaction Status Date / Time cigarette smoke Allergy Respiratory Verified 07/25/18 12:42 - Living Situation Living Situation: reports: With spouse/s.o. - Social History Does the pt smoke?: No Smoking Status: Never smoker Does the pt drink ETOH?: No Does the pt have substance abuse?: No - Family History Family history: reports: Non contributory - Immunizations Immunizations are current?: Yes - POLST Patient has POLST: No POLST Status: Full Code PD ED PE NORMAL - Vitals Vital signs reviewed: Yes - General General: Alert and oriented X 3, Other (Appears tired/somnolent) - HEENT HEENT: PERRL, EOMI - Neck Neck: Supple, no meningeal sign, No bony TTP - Cardiac Cardiac: RRR, No murmur - Respiratory Respiratory: No respiratory distress, Clear bilaterally - Abdomen Abdomen: Normal bowel sounds, Soft, Non tender - Back Back: No CVA TTP, No spinal TTP - Derm Derm: Normal color, Warm and dry - Extremities Extremities: Other (R calf seems appropriately swollen. Both calves mild TTP, neg dick's bilaterally.) - Neuro Neuro: Alert and oriented X 3, Normal speech - Psych Psych: Normal mood Results - Vitals Vitals: Vital Signs - 24 hr 07/25/18 07/25/18 07/25/18 12:38 12:53 13:09 Temperature 36.4 C L Heart Rate 76 66 77 Respiratory 14 18 13 Rate Blood Pressure 105/61 135/62 H 113/61 O2 Saturation 100 100 100 07/25/18 07/25/18 14:00 14:30 Temperature Heart Rate 61 64 Respiratory 12 12 Rate Blood Pressure 132/71 H 144/65 H O2 Saturation 100 100 Oxygen O2 Source Room air - EKG (time done) 1252 Rate: Rate (enter#) (65) Rhythm: NSR [place]: Normal Intervals: Normal [place] QRS: Normal Ischemia: Normal ST segments Computer interpretation: Agree with computer - Labs Labs: Laboratory Tests 07/25/18 07/25/18 07/25/18 13:12 13:12 13:12 WBC 8.4 RBC 4.51 Hgb 10.7 L Hct 33.3 L MCV 73.9 L MCH 23.7 L MCHC 32.1 RDW 16.2 H Plt Count 571 H MPV 7.3 L Neut # (Auto) 6.3 Lymph # (Auto) 1.4 L [place] # (Auto) 0.6 Eos # (Auto) 0.1 Baso # (Auto) 0.1 Absolute Nucleated RBC 0.00 Nucleated RBC % 0.0 Sodium 136 Potassium 3.8 Chloride 100 L Carbon Dioxide 23 Anion Gap 13.0 BUN 19 Creatinine 0.6 Estimated GFR (MDRD) 100 Glucose 110 H Calcium 9.4 Troponin I < 0.04 - Rads (name of study) CT PE Radiology: EMP read contemporaneously (lg hiatal hernia, no PE) PD MEDICAL DECISION MAKING - ED course ED course: 67-year-old woman presents with ongoing shortness of breath with thorough work- up but now being postop and with a history of the DVT PE is considered and a CT is done and negative. She also seemed dehydrated and kind of out of it and looked much better and more with it after IV fluids and requested discharge but she needed something for nausea as she is having difficulty with the pain medications. Departure - Departure Disposition: 01 Home, Self Care Clinical Impression: Dehydration Dyspnea Qualifiers: Dyspnea type: shortness of breath Qualified Code(s): R06.02 - Shortness of breath; R06.00 - Dyspnea, unspecified; R06.01 - Orthopnea Condition: Good Record reviewed to determine appropriate education?: Yes Instructions: ED Dyspnea Shortness of Breath Prescriptions: Ondansetron Odt [Zofran] 4 mg TL Q6H PRN #20 tablet PRN Reason: Nausea / Vomiting Comments: Call your doctor to arrange a follow-up appointment, make the next available appointment. In the interim, return anytime if worse or if new symptoms develop.
[2018-07-25] MEDS ORDERED: SODIUM CHLORIDE 0.9% 1,000 ML IV ONE (13:07)
[2018-07-25 13:21] LABS: BASOPHILS # (AUTO) 0.1 10^3/uL (0.0-0.1); BASOPHILS % (AUTO) 0.7 %; EOSINOPHILS # (AUTO) 0.1 10^3/uL (0.0-0.7); HGB - HEMOGLOBIN 10.7 g/dL (12.0-16.0); LYMPHOCYTES # (AUTO) 1.4 10^3/uL (1.5-3.5); MEAN CORPUSCULAR HEMOGLOBIN 23.7 pg (27.0-31.0); MEAN CORPUSCULAR HGB CONC 32.1 g/dL (32.0-36.0); MEAN CORPUSCULAR VOLUME 73.9 fL (81.0-99.0); MEAN PLATELET VOLUME 7.3 fL (7.9-10.8); MONOCYTES # (AUTO) 0.6 10^3/uL (0.0-1.0); MONOCYTES % (AUTO) 7.6 %; NEUTROPHILS # (AUTO) 6.3 10^3/uL (1.5-6.6); NEUTROPHILS % (AUTO) 74.7 %; PLT - PLATELET COUNT 571 10^3/uL (130-450); RED BLOOD COUNT 4.51 10^6/uL (4.20-5.40); RED CELL DISTRIBUTION WIDTH 16.2 % (12.0-15.0); WHITE BLOOD COUNT 8.4 x10^3/uL (4.8-10.8)
[2018-07-25 13:25] LABS: CALCIUM 9.4 mg/dL (8.5-10.3); CREATININE 0.6 mg/dL (0.4-1.0)
[2018-07-25] MEDS ORDERED: IOVERSOL 320 100 ML VIAL IVP ONE (14:16)
--- NOTE | 2018-07-25 14:41 | CT Report ---
Reason: post op dyspnea Procedure Date: 07/25/2018 Accession Number: [id number] / [id number] Procedure: CT - ANGIO CHEST W/WO CPT Code: FULL RESULT: EXAM: CT ANGIOGRAM CHEST EXAM DATE: 07/25/2018 02:09 PM. CLINICAL HISTORY: Post op dyspnea. COMPARISON: None. TECHNIQUE: Routine helical imaging was performed through the chest in the pulmonary arterial phase. IV Contrast: 80 cc of Optiray 320 contrast. Reconstructions: Coronal 3-D MIP reconstructions.Sagittal and coronal. In accordance with CT protocol optimization, one or more of the following dose reduction techniques were utilized for this exam: automated exposure control, adjustment of mA and/or KV based on patient size, or use of iterative reconstructive technique. FINDINGS: Pulmonary Arteries: Diagnostic quality: Adequate through the segmental arteries. No evidence for acute or chronic pulmonary emboli. RV/LV is within normal limits. There is no interventricular septal bowing. There is no reflux of contrast material in the IVC. Lungs/Pleura: No consolidation, nodules, or edema. No effusions or pneumothorax. Mediastinum: No cardiac enlargement or adenopathy. Thoracic Aorta: Unremarkable. Upper Abdomen: Large hiatal hernia. Other: None. IMPRESSION: 1. Normal pulmonary CT angiogram. No pulmonary emboli. 2. Large hiatal hernia is present. RADIA
[2018-07-25] MEDS ORDERED: ONDANSETRON ODT 4 MG TABLET TL STA (14:57)
[2018-07-25 15:03] VITALS: BP 140/62
== END 2018-07-25 15:14 | disposition home or self-care (01) ==
LOC: ED 12:35
DX: E86.0 Dehydration (principal); R11.0 Nausea; R06.02 Shortness of breath; R06.01 Orthopnea; Z96.651 Presence of right artificial knee joint; Z86.718 Personal history of other venous thrombosis and embolism; Z79.01 Long term (current) use of anticoagulants; K44.9 Diaphragmatic hernia without obstruction or gangrene; K21.9 Gastro-esophageal reflux disease without esophagitis; I10 Essential (primary) hypertension; I25.10 Atherosclerotic heart disease of native coronary artery without angina pectoris
CPT/HCPCS: 36415; 71275; 80048; 84484; 85025; 93005; 99281; 99284; Q0162

== ENCOUNTER 2018-08-01 09:46 | Outpatient (CLI) | payer BC ==
[2018-08-01 10:03] LABS: BASOPHILS # (AUTO) 0.1 10^3/uL (0.0-0.1); BASOPHILS % (AUTO) 0.9 %; EOSINOPHILS # (AUTO) 0.2 10^3/uL (0.0-0.7); HGB - HEMOGLOBIN 9.8 g/dL (12.0-16.0); LYMPHOCYTES # (AUTO) 1.5 10^3/uL (1.5-3.5); MEAN CORPUSCULAR HEMOGLOBIN 23.2 pg (27.0-31.0); MEAN CORPUSCULAR HGB CONC 31.4 g/dL (32.0-36.0); MEAN PLATELET VOLUME 6.8 fL (7.9-10.8); MONOCYTES # (AUTO) 0.6 10^3/uL (0.0-1.0); MONOCYTES % (AUTO) 7.2 %; NEUTROPHILS # (AUTO) 5.6 10^3/uL (1.5-6.6); NEUTROPHILS % (AUTO) 70.9 %; PLT - PLATELET COUNT 513 10^3/uL (130-450); RED CELL DISTRIBUTION WIDTH 16.7 % (12.0-15.0); WHITE BLOOD COUNT 7.8 x10^3/uL (4.8-10.8)
[2018-08-01 10:14] LABS: CALCIUM 9.5 mg/dL (8.5-10.3); CREATININE 0.8 mg/dL (0.4-1.0)
[2018-08-01 10:40] LABS: FERRITIN 41.5 ng/mL (11.0-306.8)
== END 2018-08-01 09:47 | disposition home or self-care (01) ==
LOC: LAB 09:46
PROVIDERS: ATTEND Physician Assistant Medical
DX: D50.9 Iron deficiency anemia, unspecified (principal); R73.01 Impaired fasting glucose; E03.9 Hypothyroidism, unspecified
CPT/HCPCS: 36415; 80048; 82728; 84443; 85025

== ENCOUNTER 2018-09-01 10:08 | Outpatient (CLI) | payer BC ==
[2018-09-01 10:34] LABS: BASOPHILS % (AUTO) 0.6 %; EOSINOPHILS # (AUTO) 0.2 10^3/uL (0.0-0.7); EOSINOPHILS % (AUTO) 3.2 %; HGB - HEMOGLOBIN 10.6 g/dL (12.0-16.0); LYMPHOCYTES # (AUTO) 1.7 10^3/uL (1.5-3.5); LYMPHOCYTES % (AUTO) 26.7 %; MEAN CORPUSCULAR HEMOGLOBIN 22.8 pg (27.0-31.0); MEAN CORPUSCULAR VOLUME 78.7 fL (81.0-99.0); MEAN PLATELET VOLUME 9.9 fL (7.9-10.8); MONOCYTES # (AUTO) 0.5 10^3/uL (0.0-1.0); MONOCYTES % (AUTO) 7.8 %; NEUTROPHILS % (AUTO) 61.2 %; PLT - PLATELET COUNT 395 10^3/uL (130-450); RED BLOOD COUNT 4.64 10^6/uL (4.20-5.40); RED CELL DISTRIBUTION WIDTH 17.2 % (12.0-15.0); WHITE BLOOD COUNT 6.5 x10^3/uL (4.8-10.8)
[2018-09-01 11:29] LABS: % IRON SATURATION 6 % (20-50); IRON 23 ug/dL (28-170); TOTAL IRON BINDING CAPACITY 400 ug/dL (250-450); TRANSFERRIN 286 mg/dL (192-382)
== END 2018-09-01 10:09 | disposition home or self-care (01) ==
LOC: LAB 10:08
PROVIDERS: ATTEND Physician Assistant Medical
DX: D50.9 Iron deficiency anemia, unspecified (principal)
CPT/HCPCS: 36415; 82728; 83540; 84466; 85025

== ENCOUNTER 2019-05-09 08:11 | Outpatient (CLI) | payer BC ==
[2019-05-09 08:41] LABS: BASOPHILS # (AUTO) 0.1 10^3/uL (0.0-0.1); BASOPHILS % (AUTO) 0.8 %; EOSINOPHILS # (AUTO) 0.1 10^3/uL (0.0-0.7); EOSINOPHILS % (AUTO) 1.8 %; HGB - HEMOGLOBIN 11.9 g/dL (12.0-16.0); LYMPHOCYTES # (AUTO) 1.5 10^3/uL (1.5-3.5); LYMPHOCYTES % (AUTO) 23.1 %; MEAN CORPUSCULAR HEMOGLOBIN 23.6 pg (27.0-31.0); MEAN CORPUSCULAR HGB CONC 30.3 g/dL (32.0-36.0); MEAN PLATELET VOLUME 9.1 fL (7.9-10.8); MONOCYTES # (AUTO) 0.5 10^3/uL (0.0-1.0); MONOCYTES % (AUTO) 7.1 %; NEUTROPHILS # (AUTO) 4.5 10^3/uL (1.5-6.6); NEUTROPHILS % (AUTO) 66.7 %; PLT - PLATELET COUNT 331 10^3/uL (130-450); RED BLOOD COUNT 5.04 10^6/uL (4.20-5.40); RED CELL DISTRIBUTION WIDTH 17.6 % (12.0-15.0); WHITE BLOOD COUNT 6.7 x10^3/uL (4.8-10.8)
[2019-05-09 08:58] LABS: ALBUMIN 4.3 g/dL (3.2-5.5); ALBUMIN/GLOBULIN RATIO 1.5 (1.0-2.2); ALKALINE PHOSPHATASE 76 IU/L (42-121); ALT ALANINE AMINOTRANSFERASE 17 IU/L (10-60); AST ASPARTATE AMINOTRANSFERASE 20 IU/L (10-42); BILIRUBIN,TOTAL 0.6 mg/dL (0.2-1.0); BUN - BLOOD UREA NITROGEN 18 mg/dL (6-20); CALCIUM 9.3 mg/dL (8.5-10.3); CARBON DIOXIDE - CO2 27 mmol/L (21-32); CHLORIDE 105 mmol/L (101-111); CHOL/HDL RATIO 3.5 (<4.4); CHOLESTEROL 164 mg/dL; CREATININE 0.7 mg/dL (0.4-1.0); GFR - MDRD 83 (>89); GLUCOSE 104 mg/dL (70-100); HDL CHOLESTEROL 47 mg/dL; LDL CHOLESTEROL,CALCULATED 88 mg/dL; LDL/HDL RATIO 1.9 (<4.4); SODIUM 140 mmol/L (135-145); TOTAL PROTEIN 7.2 g/dL (6.7-8.2); VLDL CHOLESTEROL 29 mg/dL
[2019-05-09 09:14] LABS: FERRITIN 10.6 ng/mL (11.0-306.8)
== END 2019-05-09 08:12 | disposition home or self-care (01) ==
LOC: LAB 08:11
PROVIDERS: ATTEND Physician Assistant Medical
DX: E78.2 Mixed hyperlipidemia (principal); D50.9 Iron deficiency anemia, unspecified; E03.9 Hypothyroidism, unspecified
CPT/HCPCS: 36415; 80053; 80061; 82728; 83721; 84443; 85025

== ENCOUNTER 2020-09-14 08:29 | Emergency (ER) | payer MEDICARE, OTHER ==
[2020-09-14 08:53] VITALS: BP 144/79
[2020-09-14 09:31] LABS: RAPID STREP SCREEN Negative (Negative)
[2020-09-14] MEDS ORDERED: DEXAMETHASONE 10 MG/ML VIAL PO STA (09:48)
[2020-09-14] MEDS ORDERED: CHERRY SYRUP 10 ML UDC PO ONE (09:48)
--- NOTE | 2020-09-14 09:51 | ED Physician Documentation ---
PD HPI HEENT - Stated complaint Stated Complaint: SORE THROAT - Chief complaint Chief Complaint: Heent - History obtained from History obtained from: Patient, Family - History of Present Illness Timing - onset: Yesterday Timing - duration: Days (2) Timing - details: Gradual onset, Still present Location: Throat Improves: Medication Worsens: Swalllowing Associated symptoms: Congestion, Rhinorrhea, Cough. No: Fever Similar symptoms before: Diagnosis (URI) Recently seen: Not recently seen - Additional information Additional information: Previously well 69-year-old female who has a chemical sensitivity reactive airway disease has developed a sore throat yesterday. She has some odynophagia and a cough. She has nasal congestion she does not have sinus pain she does not have ear pain she has no change in her hearing. Review of Systems Constitutional: denies: Fever Eyes: denies: Decreased vision Ears: denies: Ear pain Nose: reports: Rhinorrhea / runny nose, Congestion. denies: Sinus pressure / pain Throat: reports: Sore throat Cardiac: denies: Chest pain / pressure, Palpitations Respiratory: reports: Cough. 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 : None HEENT: Chronic vision loss, Chronic sinusitis Psych: Depression, Anxiety, Claustrophobia Musculoskeletal: Osteoarthritis, Chronic back pain Derm: Psoriasis - Past Surgical History Past Surgical History: Yes Ortho: Knee replacement, Arthroscopic surgery /DUB ROOM ENGINEER: Other HEENT: Other - Present Medications Home Medications: Ambulatory Orders Medication Instructions Recorded Confirmed Levothyroxine Sodium [Synthroid] 112 mcg PO QDAC 05/11/17 09/14/20 Aspirin Chewable [[place] 81 mg PO DAILY 09/14/20 09/14/20 Aspirin] Garlic 1,000 mg PO 09/14/20 Krill/[place]-3/Dha/Epa/Lipids 1 each PO 09/14/20 [Krill Oil 350 mg Softgel] - Allergies Allergies/Adverse Reactions: Allergies Allergy/AdvReac Type Severity Reaction Status Date / Time cigarette smoke Allergy Respiratory Verified 07/25/18 12:42 - Social History Does the pt smoke?: No Smoking Status: Never smoker Does the pt drink ETOH?: No Does the pt have substance abuse?: No - Immunizations Immunizations are current?: Yes - POLST Patient has POLST: No POLST Status: Full Code PD ED PE NORMAL - Vitals Vital signs reviewed: Yes (Hypertensive) - General General: Alert and oriented X 3, No acute distress, Well developed/nourished - HEENT HEENT: Atraumatic, PERRL, EOMI, Ears normal, Other (The pharynx is with mild erythema no significant swelling and no exudate. No sinus point tenderness.) - Neck Neck: Supple, no meningeal sign, No bony TTP - Cardiac Cardiac: RRR, No murmur - Respiratory Respiratory: No respiratory distress, Clear bilaterally - Abdomen Abdomen: Soft, Non tender - Back Back: No CVA TTP, No spinal TTP - Derm Derm: Normal color, Warm and dry, No rash - Extremities Extremities: No deformity, No edema - Neuro Neuro: Alert and oriented X 3, clinical secretary 2-12 intact, No motor deficit, No sensory deficit, Normal speech Eye Opening: Spontaneous Motor: Obeys Commands Verbal: Oriented GCS Score: 15 - Psych Psych: Normal mood, Normal affect Results - Vitals Vitals: Vital Signs - 24 hr 09/14/20 08:50 Temperature 36.9 C Heart Rate 74 Respiratory 16 Rate Blood Pressure 144/79 H O2 Saturation 98 Oxygen O2 Source Room air - Labs Labs: Laboratory Tests 09/14/20 09:15 Group A Strep Rapid Negative PD MEDICAL DECISION MAKING - ED course Complexity details: considered differential, d/w patient, d/w family ED course: 69-year-old female with a sore throat has a negative rapid strep I did offer to obtain a bio fire and she declined worrying about whether Medicare would pay for the test or not. She is amenable to administration of dexamethasone for symptom control. Departure - Departure Disposition: 01 Home, Self Care Clinical Impression: Viral pharyngitis Condition: Stable Instructions: ED Pharyngitis Viral Follow-Up: Judith Maldonado PA-C [Primary Care Provider] - Forms: Watchful Waiting
== END 2020-09-14 09:59 | disposition home or self-care (01) ==
LOC: ED 08:29
DX: J02.8 Acute pharyngitis due to other specified organisms (principal)
CPT/HCPCS: 87070; 87430; 99283; 99284; A9270

== ENCOUNTER 2021-01-01 10:41 | Outpatient (CLI) | payer MEDICARE, OTHER ==
[2021-01-01 17:58] LABS: BASOPHILS # (AUTO) 0.1 10^3/uL (0.0-0.1); BASOPHILS % (AUTO) 0.9 %; EOSINOPHILS # (AUTO) 0.2 10^3/uL (0.0-0.7); EOSINOPHILS % (AUTO) 2.8 %; HCT - HEMATOCRIT 41.3 % (37.0-47.0); HGB - HEMOGLOBIN 12.1 g/dL (12.0-16.0); LYMPHOCYTES # (AUTO) 1.7 10^3/uL (1.5-3.5); LYMPHOCYTES % (AUTO) 31.9 %; MEAN CORPUSCULAR HEMOGLOBIN 24.2 pg (27.0-31.0); MEAN CORPUSCULAR HGB CONC 29.3 g/dL (32.0-36.0); MEAN CORPUSCULAR VOLUME 82.8 fL (81.0-99.0); MEAN PLATELET VOLUME 10.3 fL (7.9-10.8); MONOCYTES # (AUTO) 0.4 10^3/uL (0.0-1.0); MONOCYTES % (AUTO) 7.3 %; NEUTROPHILS # (AUTO) 3.1 10^3/uL (1.5-6.6); NEUTROPHILS % (AUTO) 56.9 %; PLT - PLATELET COUNT 374 10^3/uL (130-450); RED BLOOD COUNT 4.99 10^6/uL (4.20-5.40); RED CELL DISTRIBUTION WIDTH 15.9 % (12.0-15.0); WHITE BLOOD COUNT 5.4 x10^3/uL (4.8-10.8)
[2021-01-01 19:08] LABS: THYROID STIMULATING HORMONE 0.29 uIU/mL (0.34-5.60)
[2021-01-01 19:14] LABS: FERRITIN 11.6 ng/mL (11.0-306.8)
[2021-01-01 19:16] LABS: ALBUMIN 4.6 g/dL (3.2-5.5); ALBUMIN/GLOBULIN RATIO 1.6 (1.0-2.2); ALKALINE PHOSPHATASE 71 IU/L (42-121); ALT ALANINE AMINOTRANSFERASE 17 IU/L (10-60); AST ASPARTATE AMINOTRANSFERASE 20 IU/L (10-42); BILIRUBIN,TOTAL 0.6 mg/dL (0.2-1.0); BUN - BLOOD UREA NITROGEN 24 mg/dL (6-20); CALCIUM 9.7 mg/dL (8.5-10.3); CARBON DIOXIDE - CO2 26 mmol/L (21-32); CHLORIDE 106 mmol/L (101-111); CHOL/HDL RATIO 5.4 (<4.4); CHOLESTEROL 253 mg/dL; CREATININE 0.6 mg/dL (0.4-1.0); GFR - MDRD 99 (>89); GLUCOSE 90 mg/dL (70-100); HDL CHOLESTEROL 47 mg/dL; LDL CHOLESTEROL,CALCULATED 177 mg/dL; LDL/HDL RATIO 3.8 (<4.4); POTASSIUM 4.4 mmol/L (3.5-5.0); SODIUM 141 mmol/L (135-145); TOTAL PROTEIN 7.5 g/dL (6.7-8.2); TRIGLYCERIDES 146 mg/dL; VLDL CHOLESTEROL 29 mg/dL
[2021-01-01 19:38] LABS: FREE T4 (FREE THYROXINE) 1.15 ng/dL (0.58-1.64)
== END 2021-01-01 10:42 | disposition home or self-care (01) ==
LOC: LAB.WCP 10:41
PROVIDERS: ATTEND Physician Assistant Medical
DX: E78.2 Mixed hyperlipidemia (principal); D50.9 Iron deficiency anemia, unspecified; E03.9 Hypothyroidism, unspecified
CPT/HCPCS: 36415; 80053; 80061; 82728; 83721; 84439; 84443; 85025

== ENCOUNTER 2021-12-31 10:15 | Outpatient (CLI) | payer MEDICARE, OTHER ==
[2021-12-31 10:30] LABS: BASOPHILS # (AUTO) 0.1 10^3/uL (0.0-0.1); BASOPHILS % (AUTO) 0.9 %; EOSINOPHILS # (AUTO) 0.2 10^3/uL (0.0-0.7); EOSINOPHILS % (AUTO) 4.3 %; HCT - HEMATOCRIT 38.4 % (37.0-47.0); HGB - HEMOGLOBIN 11.5 g/dL (12.0-16.0); LYMPHOCYTES # (AUTO) 1.4 10^3/uL (1.5-3.5); LYMPHOCYTES % (AUTO) 25.6 %; MEAN CORPUSCULAR HEMOGLOBIN 23.5 pg (27.0-31.0); MEAN CORPUSCULAR HGB CONC 29.9 g/dL (32.0-36.0); MEAN CORPUSCULAR VOLUME 78.5 fL (81.0-99.0); MEAN PLATELET VOLUME 9.6 fL (7.9-10.8); MONOCYTES # (AUTO) 0.4 10^3/uL (0.0-1.0); MONOCYTES % (AUTO) 8.1 %; NEUTROPHILS # (AUTO) 3.3 10^3/uL (1.5-6.6); NEUTROPHILS % (AUTO) 60.7 %; PLT - PLATELET COUNT 339 10^3/uL (130-450); RED BLOOD COUNT 4.89 10^6/uL (4.20-5.40); RED CELL DISTRIBUTION WIDTH 15.2 % (12.0-15.0); WHITE BLOOD COUNT 5.4 x10^3/uL (4.8-10.8)
[2021-12-31 10:48] LABS: ALBUMIN 4.4 g/dL (3.2-5.5); ALBUMIN/GLOBULIN RATIO 1.6 (1.0-2.2); ALKALINE PHOSPHATASE 86 IU/L (42-121); ALT ALANINE AMINOTRANSFERASE 19 IU/L (10-60); AST ASPARTATE AMINOTRANSFERASE 23 IU/L (10-42); BILIRUBIN,TOTAL 0.4 mg/dL (0.2-1.0); BUN - BLOOD UREA NITROGEN 23 mg/dL (6-20); CALCIUM 9.3 mg/dL (8.5-10.3); CARBON DIOXIDE - CO2 24 mmol/L (21-32); CHLORIDE 107 mmol/L (101-111); CHOL/HDL RATIO 3.7 (<4.4); CHOLESTEROL 169 mg/dL; CREATININE 0.7 mg/dL (0.4-1.0); GFR - MDRD 82 (>89); GLUCOSE 95 mg/dL (70-100); HDL CHOLESTEROL 46 mg/dL; LDL CHOLESTEROL,CALCULATED 105 mg/dL; LDL/HDL RATIO 2.3 (<4.4); POTASSIUM 4.1 mmol/L (3.5-5.0); SODIUM 139 mmol/L (135-145); TOTAL PROTEIN 7.2 g/dL (6.7-8.2); TRIGLYCERIDES 91 mg/dL; VLDL CHOLESTEROL 18 mg/dL
[2021-12-31 11:00] LABS: THYROID STIMULATING HORMONE 0.13 uIU/mL (0.34-5.60)
[2021-12-31 11:35] LABS: FREE T4 (FREE THYROXINE) 1.22 ng/dL (0.58-1.64)
== END 2021-12-31 10:16 | disposition home or self-care (01) ==
LOC: LAB 10:15
PROVIDERS: ATTEND Physician Assistant Medical
DX: E78.2 Mixed hyperlipidemia (principal); E03.9 Hypothyroidism, unspecified; I10 Essential (primary) hypertension
CPT/HCPCS: 36415; 80053; 80061; 83721; 84439; 84443; 85025

== ENCOUNTER 2022-04-06 08:27 | Outpatient (CLI) | payer MEDICARE, OTHER ==
[2022-04-06 09:19] LABS: CHOL/HDL RATIO 3.5 (<4.4); CHOLESTEROL 156 mg/dL; HDL CHOLESTEROL 45 mg/dL; LDL CHOLESTEROL,CALCULATED 89 mg/dL; TRIGLYCERIDES 110 mg/dL; VLDL CHOLESTEROL 22 mg/dL
[2022-04-06 09:39] LABS: THYROID STIMULATING HORMONE 0.59 uIU/mL (0.34-5.60)
== END 2022-04-06 08:28 | disposition home or self-care (01) ==
LOC: LAB 08:27
PROVIDERS: ATTEND Physician Assistant Medical
DX: E03.9 Hypothyroidism, unspecified (principal); E78.2 Mixed hyperlipidemia
CPT/HCPCS: 36415; 80061; 83721; 84443

== ENCOUNTER 2022-04-28 08:44 | Outpatient (CLI) | payer MEDICARE, OTHER ==
--- NOTE | 2022-04-28 12:23 | Mammography Report ---
BILATERAL DIGITAL SCREENING MAMMOGRAM 3D/2D: 04/28/2022 CLINICAL: Routine screening. Comparison is made to exams dated: 02/21/2015 mammogram, 02/17/2013 mammogram, and 01/20/2012 mammogra m - [facility]. There are scattered areas of fibroglandular density in both breasts (category b / 25%-50% glandular t issue). No significant masses, calcifications, or other findings are seen in either breast. There has been no significant interval change. IMPRESSION: NEGATIVE There is no mammographic evidence of malignancy. A 1 year screening mammogram is recommended. Based on the Tyrer Cuzick model (a risk assessment model) the patients lifetime risk is 2.8% and her 10 year risk is 1.9%. According to the ACR, ACS, and NCCN guidelines, an annual breast MRI exam arsen g with mammogram is recommended if the patients lifetime risk is 20% or greater. This exam was interpreted at Station ID: [id number]. NOTE: For mammograms, a report in lay terms will be sent to the patient. Approximately 15% of breast malignancies will not be visualized mammographically. In the management of a palpable breast mass, a negative mammogram must not discourage biopsy of a clinically suspicious lesion. Electronically Signed By: Patrick Walls M.D., jr/sandro:04/28/2022 09:18:01 ACR BI-RADS Category 1: Negative 3341F PARENCHYMAL PATTERN: (A) - The breast(s) demonstrate(s) scattered fibroglandular densities. BI-RADS CATEGORY: (1) - 1 RECOMMENDATION: (ANNUAL) - Recommend routine annual screening mammography. [id number] 1 year screening LATERALITY: (B)
== END 2022-04-28 08:45 | disposition home or self-care (01) ==
LOC: DI 08:44
DX: Z12.31 Encounter for screening mammogram for malignant neoplasm of breast (principal)

== ENCOUNTER 2022-05-28 08:54 | Outpatient (CLI) | payer MEDICARE, OTHER ==
[2022-05-28 15:49] LABS: THYROID STIMULATING HORMONE 0.89 uIU/mL (0.34-5.60)
== END 2022-05-28 08:55 | disposition home or self-care (01) ==
LOC: LAB 08:54
PROVIDERS: ATTEND Physician Assistant Medical
DX: E03.9 Hypothyroidism, unspecified (principal)
CPT/HCPCS: 36415; 84443

== ENCOUNTER 2022-06-17 14:35 | Outpatient (CLI) | payer MEDICARE, OTHER ==
[2022-06-17 15:24] LABS: THYROID STIMULATING HORMONE 1.07 uIU/mL (0.34-5.60)
== END 2022-06-17 14:36 | disposition home or self-care (01) ==
LOC: LAB 14:35
PROVIDERS: ATTEND Physician Assistant Medical
DX: E03.9 Hypothyroidism, unspecified (principal)
CPT/HCPCS: 36415; 84443

== ENCOUNTER 2023-01-11 09:26 | Outpatient (CLI) | payer MEDICARE, OTHER ==
[2023-01-11 09:53] LABS: BASOPHILS % (AUTO) 0.5 %; EOSINOPHILS # (AUTO) 0.1 10^3/uL (0.0-0.7); EOSINOPHILS % (AUTO) 2.1 %; HCT - HEMATOCRIT 41.1 % (37.0-47.0); LYMPHOCYTES # (AUTO) 1.6 10^3/uL (1.5-3.5); MEAN CORPUSCULAR HEMOGLOBIN 24.9 pg (27.0-31.0); MEAN CORPUSCULAR HGB CONC 31.6 g/dL (32.0-36.0); MEAN CORPUSCULAR VOLUME 78.7 fL (81.0-99.0); MEAN PLATELET VOLUME 9.5 fL (7.9-10.8); MONOCYTES # (AUTO) 0.5 10^3/uL (0.0-1.0); NEUTROPHILS # (AUTO) 4.3 10^3/uL (1.5-6.6); NEUTROPHILS % (AUTO) 66.2 %; PLT - PLATELET COUNT 337 10^3/uL (130-450); RED BLOOD COUNT 5.22 10^6/uL (4.20-5.40); WHITE BLOOD COUNT 6.6 x10^3/uL (4.8-10.8)
[2023-01-11 10:03] LABS: ALBUMIN 4.8 g/dL (3.2-5.5); ALBUMIN/GLOBULIN RATIO 1.8 (1.0-2.2); ALKALINE PHOSPHATASE 93 IU/L (42-121); ALT ALANINE AMINOTRANSFERASE 20 IU/L (10-60); AST ASPARTATE AMINOTRANSFERASE 23 IU/L (10-42); BILIRUBIN,TOTAL 0.7 mg/dL (0.2-1.0); BUN - BLOOD UREA NITROGEN 17 mg/dL (6-20); CALCIUM 9.5 mg/dL (8.5-10.3); CARBON DIOXIDE - CO2 29 mmol/L (21-32); CHLORIDE 105 mmol/L (101-111); CHOL/HDL RATIO 3.1 (<4.4); CHOLESTEROL 164 mg/dL; CREATININE 0.7 mg/dL (0.6-1.3); GFR - MDRD 82 (>89); GLUCOSE 101 mg/dL (74-104); HDL CHOLESTEROL 53 mg/dL; LDL CHOLESTEROL,CALCULATED 85 mg/dL; LDL/HDL RATIO 1.6 (<4.4); POTASSIUM 4.3 mmol/L (3.5-4.5); SODIUM 140 mmol/L (135-145); TOTAL PROTEIN 7.4 g/dL (6.4-8.9); TRIGLYCERIDES 131 mg/dL (48-352); VLDL CHOLESTEROL 26 mg/dL
[2023-01-11 10:16] LABS: THYROID STIMULATING HORMONE 0.68 uIU/mL (0.34-5.60)
== END 2023-01-11 09:27 | disposition home or self-care (01) ==
LOC: LAB 09:26
PROVIDERS: ATTEND Physician Assistant Medical
DX: E78.2 Mixed hyperlipidemia (principal); E03.9 Hypothyroidism, unspecified; D50.9 Iron deficiency anemia, unspecified
CPT/HCPCS: 36415; 80053; 80061; 83721; 84443; 85025

== ENCOUNTER 2023-08-10 08:34 | Outpatient (CLI) | payer MEDICARE, OTHER ==
[2023-08-10 08:50] LABS: BASOPHILS # (AUTO) 0.1 10^3/uL (0.0-0.1); BASOPHILS % (AUTO) 0.7 %; EOSINOPHILS # (AUTO) 0.2 10^3/uL (0.0-0.7); EOSINOPHILS % (AUTO) 2.5 %; HGB - HEMOGLOBIN 12.9 g/dL (12.0-16.0); LYMPHOCYTES # (AUTO) 1.8 10^3/uL (1.5-3.5); LYMPHOCYTES % (AUTO) 22.3 %; MEAN CORPUSCULAR HEMOGLOBIN 24.8 pg (27.0-31.0); MEAN CORPUSCULAR HGB CONC 30.7 g/dL (32.0-36.0); MEAN CORPUSCULAR VOLUME 80.8 fL (81.0-99.0); MEAN PLATELET VOLUME 9.4 fL (7.9-10.8); MONOCYTES # (AUTO) 0.5 10^3/uL (0.0-1.0); MONOCYTES % (AUTO) 6.2 %; NEUTROPHILS # (AUTO) 5.5 10^3/uL (1.5-6.6); NEUTROPHILS % (AUTO) 68.1 %; PLT - PLATELET COUNT 325 10^3/uL (130-450); RED CELL DISTRIBUTION WIDTH 16.2 % (12.0-15.0); WHITE BLOOD COUNT 8.1 x10^3/uL (4.8-10.8)
[2023-08-10 09:10] LABS: BUN - BLOOD UREA NITROGEN 22 mg/dL (6-20); CALCIUM 9.7 mg/dL (8.5-10.3); CARBON DIOXIDE - CO2 28 mmol/L (21-32); CHLORIDE 106 mmol/L (101-111); CHOL/HDL RATIO 3.8 (<4.4); CHOLESTEROL 174 mg/dL; CREATININE 0.7 mg/dL (0.6-1.3); GFR - MDRD 82 (>89); GLUCOSE 99 mg/dL (74-104); HDL CHOLESTEROL 46 mg/dL; LDL CHOLESTEROL,CALCULATED 94 mg/dL; SODIUM 139 mmol/L (135-145); TRIGLYCERIDES 172 mg/dL (48-352); VLDL CHOLESTEROL 34 mg/dL
--- NOTE | 2023-08-10 13:40 | XRAY Report ---
PROCEDURE: Lumbar Spine 2-3V INDICATIONS: DEGENERATIVE DISC DISEASE,LUMBAR TECHNIQUE: 3 views of the lumbar spine were acquired. COMPARISON: X-ray lumbar spine 04/13/2018 FINDINGS: Surgical change: None. Bones: 5 [id number] vertebrae are present. No vertebral body compression fractures. No suspici ous bony lesions. Multilevel moderate to severe degenerative disc space narrowing most prominent at L 2-3 and L5-S1. Multilevel foraminal narrowing is present severe at L5-S1. There is slight rightward c urvature with apex at L2-3. Soft tissues: Overlying bowel gas pattern is normal. No suspicious soft tissue calcifications. IMPRESSION: Degenerative changes overall progressive compared to 2019 most severe at L5-S1. Reviewed by: Tata Stanley MD on 08/10/2023 1:38 PM PDT Approved by: Tata Stanley MD on 08/10/2023 1:38 PM PDT Station ID: [id number]
== END 2023-08-10 08:35 | disposition home or self-care (01) ==
LOC: LAB 08:34
PROVIDERS: ATTEND Internal Medicine Cardiovascular Disease
DX: I10 Essential (primary) hypertension (principal); E78.5 Hyperlipidemia, unspecified; M51.36 Other intervertebral disc degeneration, lumbar region; M47.816 Spondylosis without myelopathy or radiculopathy, lumbar region; M47.817 Spondylosis without myelopathy or radiculopathy, lumbosacral region
CPT/HCPCS: 36415; 80048; 80061; 83721; 85025